=== PATIENT | male | born 1960 | race Caucasian/White ===

== ENCOUNTER → 2016-09-11 | Outpatient (CLI) | payer OTHER ==
[~2016-09-11] MED LIST: AMLODIPINE10 MG PO; ATENOLOL25 MG PO; BENAZEPRIL20 MG PO; FLONASE 0.05% 121 EA NAS; FLUTICASON0.05 MG/A2 NAS; PREDNICOT20 MG PO; PRILOSEC40 MG PO; ZITHROMAX Z PA250 MG PO
== END | disposition home or self-care (01) ==
LOC: RESCLI 02:57
DX: I10 Essential (primary) hypertension (principal); N52.9 Male erectile dysfunction, unspecified; J01.90 Acute sinusitis, unspecified; J44.9 Chronic obstructive pulmonary disease, unspecified; M79.602 Pain in left arm; E78.5 Hyperlipidemia, unspecified; K21.9 Gastro-esophageal reflux disease without esophagitis; R09.81 Nasal congestion; R19.7 Diarrhea, unspecified

== ENCOUNTER → 2016-12-10 | Outpatient (CLI) | payer OTHER | END | disposition home or self-care (01) | LOC: RESCLI 03:09 | DX: J44.9 Chronic obstructive pulmonary disease, unspecified (principal); I10 Essential (primary) hypertension; R09.81 Nasal congestion; N52.9 Male erectile dysfunction, unspecified; K21.9 Gastro-esophageal reflux disease without esophagitis; F17.200 Nicotine dependence, unspecified, uncomplicated; Z88.1 Allergy status to other antibiotic agents ==

== ENCOUNTER → 2017-01-29 | Outpatient (CLI) | payer OTHER | END | disposition home or self-care (01) | LOC: RESCLI 01:17 | DX: J44.1 Chronic obstructive pulmonary disease with (acute) exacerbation (principal); I10 Essential (primary) hypertension; J01.91 Acute recurrent sinusitis, unspecified; R19.7 Diarrhea, unspecified; R09.81 Nasal congestion; M79.602 Pain in left arm; N52.9 Male erectile dysfunction, unspecified; K21.9 Gastro-esophageal reflux disease without esophagitis ==

== ENCOUNTER → 2017-06-18 | Outpatient (CLI) | payer OTHER | END | disposition home or self-care (01) | LOC: RESCLI 04:57 | DX: J44.9 Chronic obstructive pulmonary disease, unspecified (principal); J30.2 Other seasonal allergic rhinitis; R09.81 Nasal congestion; I10 Essential (primary) hypertension; K21.9 Gastro-esophageal reflux disease without esophagitis; R19.7 Diarrhea, unspecified; L98.9 Disorder of the skin and subcutaneous tissue, unspecified; N52.9 Male erectile dysfunction, unspecified; F17.200 Nicotine dependence, unspecified, uncomplicated ==

== ENCOUNTER → 2017-07-23 | Outpatient (CLI) | payer OTHER | END | disposition home or self-care (01) | LOC: RESCLI 03:10 | DX: J30.2 Other seasonal allergic rhinitis (principal); R09.81 Nasal congestion; I10 Essential (primary) hypertension; J44.9 Chronic obstructive pulmonary disease, unspecified; K21.9 Gastro-esophageal reflux disease without esophagitis; N52.9 Male erectile dysfunction, unspecified; L98.9 Disorder of the skin and subcutaneous tissue, unspecified; M19.90 Unspecified osteoarthritis, unspecified site; Z72.0 Tobacco use; Z71.6 Tobacco abuse counseling; Z88.6 Allergy status to analgesic agent ==

== ENCOUNTER → 2017-11-05 | Outpatient (CLI) | payer OTHER | END | disposition home or self-care (01) | LOC: RESCLI 02:22 | DX: J44.9 Chronic obstructive pulmonary disease, unspecified (principal); F32.0 Major depressive disorder, single episode, mild; N52.9 Male erectile dysfunction, unspecified; J30.2 Other seasonal allergic rhinitis; R19.7 Diarrhea, unspecified; M19.90 Unspecified osteoarthritis, unspecified site; K21.9 Gastro-esophageal reflux disease without esophagitis; I10 Essential (primary) hypertension; F17.200 Nicotine dependence, unspecified, uncomplicated; Z71.6 Tobacco abuse counseling ==

== ENCOUNTER → 2017-11-20 | Outpatient (CLI) | payer OTHER | END | disposition home or self-care (01) | LOC: RESCLI 00:46 | DX: F32.0 Major depressive disorder, single episode, mild (principal); N52.9 Male erectile dysfunction, unspecified; J30.2 Other seasonal allergic rhinitis; R19.7 Diarrhea, unspecified; M19.90 Unspecified osteoarthritis, unspecified site; J44.9 Chronic obstructive pulmonary disease, unspecified; K21.9 Gastro-esophageal reflux disease without esophagitis; I10 Essential (primary) hypertension; F17.210 Nicotine dependence, cigarettes, uncomplicated; Z71.6 Tobacco abuse counseling ==

== ENCOUNTER → 2018-05-27 | Outpatient (CLI) | payer SELFPAY | END | disposition home or self-care (01) | LOC: RESCLI 03:46 | DX: Z00.01 Encounter for general adult medical examination with abnormal findings (principal); I10 Essential (primary) hypertension; M19.90 Unspecified osteoarthritis, unspecified site; J06.9 Acute upper respiratory infection, unspecified; J44.9 Chronic obstructive pulmonary disease, unspecified; K59.00 Constipation, unspecified; N52.9 Male erectile dysfunction, unspecified; K21.9 Gastro-esophageal reflux disease without esophagitis; F17.200 Nicotine dependence, unspecified, uncomplicated; F19.90 Other psychoactive substance use, unspecified, uncomplicated; Z71.6 Tobacco abuse counseling; Z82.0 Family history of epilepsy and other diseases of the nervous system; Z78.9 Other specified health status; Z79.899 Other long term (current) drug therapy ==

== ENCOUNTER → 2018-07-01 | Outpatient (CLI) | payer SELFPAY ==
[2018-07-01 09:44] LABS: BASO % 0.4 % (0.0-1.0); EOS # 0.2 10*3/uL (0.0-0.4); EOS % 1.6 % (1.0-4.0); HEMATOCRIT 41.5 % (42.0-52.0); LYMPH % 29.1 % (27.0-41.0); MEAN CELL VOLUME 96.5 fl (80.0-94.0); MEAN CORPUSCULAR HGB 32.6 pg (27.0-31.0); MEAN CORPUSCULAR HGB CONC 33.7 g/dl (33.0-37.0); MEAN PLATELET VOLUME 9.7 fl (9.6-12.3); MONO # 0.8 10*3/uL (0.1-1.0); NEUT # 6.3 10*3/uL (2.3-7.9); NEUT % 60.6 % (47.0-73.0); PLATELET COUNT AUTOMATED 215 10*3/uL (130-400); RED CELL DISTRI WIDTH 12.2 % (0-14.5); WHITE BLOOD COUNT 10.3 10*3/uL (4.8-10.8)
[2018-07-01 10:04] LABS: ALBUMIN 3.3 gm/dl (3.1-4.5); ALKALINE PHOSPHATASE 79 U/L (45-117); BUN 18 mg/dl (7-24); CHLORIDE 108 mmol/L (98-107); CHOLESTEROL 181 mg/dL (<200); CREATININE 0.99 mg/dL (0.70-1.30); HDL CHOLESTEROL 41 mg/dl (40-60); LDL CHOLESTEROL 106 mg/dL (9-159); POTASSIUM 3.4 mmol/L (3.5-5.1); SGOT/AST 12 IU/L (3-35); SGPT/ALT 18 U/L (12-78); SODIUM 143 mmol/L (136-145); TOTAL PROTEIN 7.3 gm/dL (6.4-8.2); TRIGLYCERIDES 171 mg/dl (<150); VLDL CHOLESTEROL 34 mg/dL (6-40)
[2018-07-01 10:59] LABS: VITAMIN D, 25-HYDROXY 40.7 ng/mL (30-100)
== END | disposition home or self-care (01) ==
LOC: RESCLI 03:21
PROVIDERS: Internal Medicine
DX: Z12.5 Encounter for screening for malignant neoplasm of prostate (principal); I10 Essential (primary) hypertension; J44.9 Chronic obstructive pulmonary disease, unspecified; J01.11 Acute recurrent frontal sinusitis; N52.9 Male erectile dysfunction, unspecified; K21.9 Gastro-esophageal reflux disease without esophagitis; M19.90 Unspecified osteoarthritis, unspecified site; J30.2 Other seasonal allergic rhinitis; K52.9 Noninfective gastroenteritis and colitis, unspecified; E83.51 Hypocalcemia; E66.3 Overweight; F17.200 Nicotine dependence, unspecified, uncomplicated; Z88.8 Allergy status to other drugs, medicaments and biological substances; Z79.899 Other long term (current) drug therapy; Z71.6 Tobacco abuse counseling

== ENCOUNTER → 2018-07-22 | Outpatient (CLI) | payer SELFPAY | END | disposition home or self-care (01) | LOC: RESCLI 02:34 | DX: I10 Essential (primary) hypertension (principal); J44.9 Chronic obstructive pulmonary disease, unspecified; E66.3 Overweight; J01.11 Acute recurrent frontal sinusitis; F17.200 Nicotine dependence, unspecified, uncomplicated; N52.9 Male erectile dysfunction, unspecified; K21.9 Gastro-esophageal reflux disease without esophagitis; M19.90 Unspecified osteoarthritis, unspecified site; J30.2 Other seasonal allergic rhinitis; K52.9 Noninfective gastroenteritis and colitis, unspecified; E83.51 Hypocalcemia; Z79.899 Other long term (current) drug therapy; Z71.6 Tobacco abuse counseling; Z88.8 Allergy status to other drugs, medicaments and biological substances ==

== ENCOUNTER → 2018-09-24 | Outpatient (CLI) | payer SELFPAY | END | disposition home or self-care (01) | LOC: RESCLI 01:36 | DX: J44.9 Chronic obstructive pulmonary disease, unspecified (principal); E83.51 Hypocalcemia; M19.90 Unspecified osteoarthritis, unspecified site; I10 Essential (primary) hypertension; N52.9 Male erectile dysfunction, unspecified; K21.9 Gastro-esophageal reflux disease without esophagitis; K52.9 Noninfective gastroenteritis and colitis, unspecified; F17.200 Nicotine dependence, unspecified, uncomplicated; Z79.899 Other long term (current) drug therapy; Z88.8 Allergy status to other drugs, medicaments and biological substances ==

== ENCOUNTER 2018-10-29 15:03 | Emergency (ER) | payer SELFPAY ==
[~2018-10-29] VITALS: Ht 162.5 cm; Wt 70.3 kg
--- NOTE | ~2018-10-29 | EKG ---
[place], [place] ELECTROCARDIOGRAM REPORT NAME: NELSY MANRIQUE UNIT #: [id number] ROOM: DOCTOR: [facility] DRAFT REPORT BIRTHDATE: [birth year] [facility] Test Date: 2018-10-29 Test Time: 15:41:02 Pat Name: NELSY MANRIQUE Department: Room: Gender: Software Support Technician: Marah Mayen : 1960 Requested By: KAMRAN QUIÑONEZ Order Number: [id number] Reading MD: Tomy Jones MD Measurements Intervals English Rate: 96 P: 30 NH: 151 QRS: -29 QRSD: 84 T: 75 QT: 347 QTc: 439 Interpretive Statements Sinus rhythm Atrial premature complex Borderline left axis deviation Baseline wander in lead(s) V3 No previous ECG available for comparison Electronically Signed On 10-30-2018 17:16:18 PST by Tomy Jones MD CM:EKGRPT:ELECTROCARDIOGRAM REPORT [id number] KAMRAN BURNS DRAFT REPORT KAMRAN QUIÑONEZ DO
[2018-10-29 15:59] LABS: BASO # 0.1 10*3/uL (0.0-0.1); BASO % 0.5 % (0.0-1.0); EOS # 0.1 10*3/uL (0.0-0.4); EOS % 0.6 % (1.0-4.0); HEMATOCRIT 42.8 % (42.0-52.0); HEMOGLOBIN 14.9 g/dl (14.0-18.0); LYMPH # 2.3 10*3/uL (1.3-4.4); LYMPH % 17.5 % (27.0-41.0); MEAN CELL VOLUME 94.3 fl (80.0-94.0); MEAN CORPUSCULAR HGB 32.8 pg (27.0-31.0); MEAN CORPUSCULAR HGB CONC 34.8 g/dl (33.0-37.0); MEAN PLATELET VOLUME 9.6 fl (9.6-12.3); MONO # 0.7 10*3/uL (0.1-1.0); MONO % 5.4 % (3.0-9.0); NEUT % 75.6 % (47.0-73.0); PLATELET COUNT AUTOMATED 235 10*3/uL (130-400); RED BLOOD COUNT 4.54 10*6/uL (4.50-5.90); RED CELL DISTRI WIDTH 12.3 % (0-14.5); WHITE BLOOD COUNT 13.3 10*3/uL (4.8-10.8)
[2018-10-29 16:07] LABS: ACT PARTIAL THROMBO TIME 23.5 SECONDS (20.8-31.5); INTERNATIONAL NORM RATIO 1.1 (2.0-3.5)
[2018-10-29 16:24] LABS: ALBUMIN 3.6 gm/dl (3.1-4.5); ALKALINE PHOSPHATASE 76 U/L (45-117); BUN 23 mg/dl (7-24); CHLORIDE 102 mmol/L (98-107); POTASSIUM 2.9 mmol/L (3.5-5.1); SGOT/AST 17 IU/L (3-35); SGPT/ALT 21 U/L (12-78); SODIUM 141 mmol/L (136-145); TOTAL PROTEIN 7.6 gm/dL (6.4-8.2)
[2018-10-29 16:28] LABS: TROPONIN I < 0.015 ng/ml (<0.045)
[2018-10-29 16:30] LABS: THYROID STIM HORMONE (HS) 0.704 uIU/ml (0.358-4.75)
[2018-10-29 17:05] VITALS: BP 135/97
[2018-10-29 17:09] LABS: BILIRUBIN NEGATIVE (NEGATIVE); BLOOD NEGATIVE (NEGATIVE); CLARITY CLEAR (CLEAR); COLOR YELLOW (YELLOW); GLUCOSE NEGATIVE (NEGATIVE); KETONE NEGATIVE (NEGATIVE); LEUKO ESTERASE NEGATIVE (NEGATIVE); NITRITE NEGATIVE (NEGATIVE); UROBILINOGEN 0.2 E.U./dl (0.2-1.0)
[2018-10-29 17:17] LABS: BACTERIA TRACE; EPITHELIAL CELLS 0-2; HYALINE CAST 0-2; WBC 0-2 wbc/hpf (0-5)
[2018-10-29 17:22] LABS: URINE AMPHETAMINES < 1000 (1000ng/ml); URINE BARBITURATES < 200 (200ng/ml); URINE BENZODIAZEPINES < 200 (200ng/ml); URINE CANNABINOIDS (THC) > 50 (50ng/ml); URINE COCAINE < 300 (300ng/ml); URINE METHADONE < 300 (300ng/ml); URINE OPIATES < 300 (300ng/ml)
[2018-10-29 17:24] LABS: URINE PHENCYCLIDINE < 25 (25ng/ml)
== END 2018-10-29 18:32 | disposition left against medical advice (07) ==
LOC: ED 15:03
PROVIDERS: Internal Medicine
DX: S00.81XA Abrasion of other part of head, initial encounter (principal); R55 Syncope and collapse; J44.9 Chronic obstructive pulmonary disease, unspecified; Z98.890 Other specified postprocedural states; Z79.899 Other long term (current) drug therapy; W22.8XXA Striking against or struck by other objects, initial encounter; Y93.89 Activity, other specified; Y92.090 Kitchen in other non-institutional residence as the place of occurrence of the external cause; Y99.9 Unspecified external cause status

== ENCOUNTER → 2018-10-31 | Outpatient (CLI) | payer SELFPAY | END | disposition home or self-care (01) | LOC: RESCLI 14:37 | DX: J44.9 Chronic obstructive pulmonary disease, unspecified (principal); E83.51 Hypocalcemia; M19.90 Unspecified osteoarthritis, unspecified site; I10 Essential (primary) hypertension; N52.9 Male erectile dysfunction, unspecified; K21.9 Gastro-esophageal reflux disease without esophagitis; K52.9 Noninfective gastroenteritis and colitis, unspecified; F17.200 Nicotine dependence, unspecified, uncomplicated; J01.80 Other acute sinusitis; J02.9 Acute pharyngitis, unspecified; Z79.899 Other long term (current) drug therapy; Z88.8 Allergy status to other drugs, medicaments and biological substances ==

== ENCOUNTER → 2018-12-03 | Outpatient (CLI) | payer SELFPAY | END | disposition home or self-care (01) | LOC: RESCLI 01:15 | DX: J44.9 Chronic obstructive pulmonary disease, unspecified (principal); I10 Essential (primary) hypertension; K21.9 Gastro-esophageal reflux disease without esophagitis; M19.90 Unspecified osteoarthritis, unspecified site; N52.9 Male erectile dysfunction, unspecified; K52.9 Noninfective gastroenteritis and colitis, unspecified; J01.80 Other acute sinusitis; F17.200 Nicotine dependence, unspecified, uncomplicated ==

== ENCOUNTER → 2019-01-23 | Outpatient (CLI) | payer SELFPAY ==
[~2019-01-23] MED LIST changes: +ALDACTONE25 MG PO; +AMLODIPINE BESY10 MG PO; +ATROVENT HFA12.9 GM INH; +DILANTIN100 MG PO; +DULE1ARO1 INH; +FAMOTIDINE40 MG PO; +HYDR25T PO; +LOTREL 10-40 M1 EACH PO; +MAGNESIUM OXID400 MG PO; +OMEPRAZOLE40 MG PO; +OYSTER SHELL 51 EACH PO; +POTASSIUM CHLO10 ME5 PO; +PROVENTIL HFA6.7 GM INH
== END | disposition home or self-care (01) ==
LOC: RESCLI 01:33
DX: K21.9 Gastro-esophageal reflux disease without esophagitis (principal); J44.9 Chronic obstructive pulmonary disease, unspecified; J02.9 Acute pharyngitis, unspecified; J18.9 Pneumonia, unspecified organism; M19.90 Unspecified osteoarthritis, unspecified site; I10 Essential (primary) hypertension; N52.9 Male erectile dysfunction, unspecified; E66.3 Overweight; F17.200 Nicotine dependence, unspecified, uncomplicated; Z71.6 Tobacco abuse counseling; Z79.899 Other long term (current) drug therapy; Z88.8 Allergy status to other drugs, medicaments and biological substances

== ENCOUNTER → 2019-02-10 | Outpatient (CLI) | payer MEDICAID | END | disposition home or self-care (01) | LOC: RESCLI 02:33 | DX: J44.9 Chronic obstructive pulmonary disease, unspecified (principal); M19.90 Unspecified osteoarthritis, unspecified site; I10 Essential (primary) hypertension; N52.9 Male erectile dysfunction, unspecified; K21.9 Gastro-esophageal reflux disease without esophagitis; K52.9 Noninfective gastroenteritis and colitis, unspecified; F17.200 Nicotine dependence, unspecified, uncomplicated; G56.03 Carpal tunnel syndrome, bilateral upper limbs; E78.5 Hyperlipidemia, unspecified; Z79.899 Other long term (current) drug therapy ==

== ENCOUNTER → 2019-03-04 | Outpatient (CLI) | payer MEDICAID | END | disposition home or self-care (01) | LOC: RESCLI 00:08 | DX: J01.11 Acute recurrent frontal sinusitis (principal); I10 Essential (primary) hypertension; N52.9 Male erectile dysfunction, unspecified; K21.9 Gastro-esophageal reflux disease without esophagitis; K52.9 Noninfective gastroenteritis and colitis, unspecified; J44.9 Chronic obstructive pulmonary disease, unspecified; M19.90 Unspecified osteoarthritis, unspecified site; J30.9 Allergic rhinitis, unspecified; F17.200 Nicotine dependence, unspecified, uncomplicated; Z71.6 Tobacco abuse counseling; Z79.899 Other long term (current) drug therapy; Z88.8 Allergy status to other drugs, medicaments and biological substances ==

== ENCOUNTER → 2019-03-24 | Outpatient (CLI) | payer SELFPAY ==
[~2019-03-24] MED LIST changes: -ALDACTONE25 MG PO; -AMLODIPINE BESY10 MG PO; -ATROVENT HFA12.9 GM INH; -DILANTIN100 MG PO; -DULE1ARO1 INH; -FAMOTIDINE40 MG PO; -HYDR25T PO; -LOTREL 10-40 M1 EACH PO; -MAGNESIUM OXID400 MG PO; -OMEPRAZOLE40 MG PO; -OYSTER SHELL 51 EACH PO; -POTASSIUM CHLO10 ME5 PO; -PROVENTIL HFA6.7 GM INH
== END | disposition home or self-care (01) ==
LOC: RESCLI 08:31
DX: K21.9 Gastro-esophageal reflux disease without esophagitis (principal); I10 Essential (primary) hypertension; N52.9 Male erectile dysfunction, unspecified; M19.90 Unspecified osteoarthritis, unspecified site; J44.9 Chronic obstructive pulmonary disease, unspecified; J30.9 Allergic rhinitis, unspecified; J44.1 Chronic obstructive pulmonary disease with (acute) exacerbation; F17.200 Nicotine dependence, unspecified, uncomplicated; E78.5 Hyperlipidemia, unspecified; Z79.899 Other long term (current) drug therapy

== ENCOUNTER → 2019-03-31 | Outpatient (CLI) | payer SELFPAY ==
--- NOTE | ~2019-03-31 | EKG ---
[place], [place] ELECTROCARDIOGRAM REPORT NAME: NELSY MANRIQUE UNIT #: [id number] ROOM: DOCTOR: EPIP[facility] DRAFT REPORT BIRTHDATE: [birth year] [facility] Test Date: 2019-03-31 Test Time: 09:49:18 Pat Name: NELSY MANRIQUE Department: [facility] Room: Gender: M Reading Specialist: Mirela Drake : 1960 Requested By: DANILO WEST Order Number: [id number] Reading MD: Dianne Fenton Measurements Intervals [place] Rate: 111 P: 57 IL: 132 QRS: -7 QRSD: 86 T: 65 QT: 314 QTc: 427 Interpretive Statements Sinus tachycardia Borderline low voltage, extremity leads Compared to ECG 10/29/2018 15:41:02 Sinus rhythm no longer present Atrial premature complex(es) no longer present Electronically Signed On 03-31-2019 7:49:37 PDT by Dianne Fenton CM:EKGRPT:ELECTROCARDIOGRAM REPORT DANILO WEST MD EPIPHJORDAN DRAFT REPORT DANILO WEST MD
[2019-03-31 10:34] LABS: CHLORIDE 100 mmol/L (98-107); POTASSIUM 3.3 mmol/L (3.5-5.1); SODIUM 141 mmol/L (136-145)
[2019-03-31 10:54] LABS: ALBUMIN 3.3 gm/dl (3.1-4.5); ALKALINE PHOSPHATASE 76 U/L (45-117); BUN 36 mg/dl (7-24); CREATININE 1.35 mg/dL (0.70-1.30); PHENYTOIN (DILANTIN) 0.8 ug/ml (10-20); SGOT/AST 20 IU/L (3-35); SGPT/ALT 26 U/L (12-78); TOTAL PROTEIN 7.4 gm/dL (6.4-8.2)
== END | disposition home or self-care (01) ==
LOC: RESCLI 01:00
PROVIDERS: Internal Medicine
DX: M25.561 Pain in right knee (principal); I10 Essential (primary) hypertension; S80.01XA Contusion of right knee, initial encounter; R56.9 Unspecified convulsions; J44.1 Chronic obstructive pulmonary disease with (acute) exacerbation; K21.9 Gastro-esophageal reflux disease without esophagitis; M19.90 Unspecified osteoarthritis, unspecified site; F17.210 Nicotine dependence, cigarettes, uncomplicated; J01.91 Acute recurrent sinusitis, unspecified; W19.XXXA Unspecified fall, initial encounter; Y93.89 Activity, other specified; Y92.89 Other specified places as the place of occurrence of the external cause; Y99.8 Other external cause status; Z79.899 Other long term (current) drug therapy

== ENCOUNTER 2019-05-07 14:03 | Inpatient (IN) | payer OTHER ==
[~2019-05-07] VITALS: Ht 162.6 cm; Wt 70.3 kg
[2019-05-07 14:05] VITALS: BP 145/107
[2019-05-07 14:35] LABS: BASO # 0.1 10*3/uL (0.0-0.1); BASO % 0.3 % (0.0-1.0); EOS % 0.1 % (1.0-4.0); HEMATOCRIT 42.5 % (42.0-52.0); HEMOGLOBIN 14.7 g/dl (14.0-18.0); LYMPH # 1.5 10*3/uL (1.3-4.4); LYMPH % 8.8 % (27.0-41.0); MEAN CELL VOLUME 96.2 fl (80.0-94.0); MEAN CORPUSCULAR HGB 33.3 pg (27.0-31.0); MEAN CORPUSCULAR HGB CONC 34.6 g/dl (33.0-37.0); MEAN PLATELET VOLUME 9.9 fl (9.6-12.3); MONO # 0.8 10*3/uL (0.1-1.0); MONO % 4.8 % (3.0-9.0); NEUT # 14.9 10*3/uL (2.3-7.9); NEUT % 85.3 % (47.0-73.0); PLATELET COUNT AUTOMATED 253 10*3/uL (130-400); RED BLOOD COUNT 4.42 10*6/uL (4.50-5.90); RED CELL DISTRI WIDTH 12.4 % (0-14.5); WHITE BLOOD COUNT 17.4 10*3/uL (4.8-10.8)
[2019-05-07 14:45] LABS: ACT PARTIAL THROMBO TIME 23.1 SECONDS (20.0-32.1); INTERNATIONAL NORM RATIO 1.2 (2.0-3.5)
[2019-05-07 15:00] LABS: ALBUMIN 3.8 gm/dl (3.1-4.5); ALKALINE PHOSPHATASE 64 U/L (45-117); BUN 18 mg/dl (7-24); CHLORIDE 98 mmol/L (98-107); SGOT/AST 32 IU/L (3-35); SGPT/ALT 26 U/L (12-78); SODIUM 138 mmol/L (136-145); TOTAL PROTEIN 7.5 gm/dL (6.4-8.2)
[2019-05-07 15:02] LABS: POTASSIUM 2.1 mmol/L (3.5-5.1)
--- NOTE | 2019-05-07 15:02 | NUR ---
Notifed by lab, Pt has Potassium of 2.1, Mag 0.4, Ca 6.6. Linnette WERNER and Melvin MAHMOOD notifed.
[2019-05-07 15:04] LABS: TROPONIN I < 0.015 ng/ml (<0.045)
[2019-05-07 15:10] VITALS: BP 142/94
[2019-05-07 16:25] VITALS: BP 124/72
[2019-05-07 16:40] VITALS: BP 127/90
--- NOTE | 2019-05-07 16:55 | NUR ---
A 58, admitted to ICCU, under the services of HAKAN Powers DO with a diagnosis of ELECTROLYTE DISTURBANCE. Chief complaint is DIZZINESS AT HOME. Patient arrived via stretcher from ER. Monitor applied. Initial assessment completed. Vital signs taken and recorded. HKAAN POWERS DO notified of admission to the unit. Orders received. See assessment for past medical history, medications and allergies. Patient and/or family oriented to unit. [facility] ICCU visitation policy reviewed. Clothing/patient valuable form completed. VICTOR M KRAUS
[2019-05-07] MEDS ORDERED: LOTREL 10-40 M1 EACH PO (17:48)
[2019-05-07] MEDS ORDERED: HYDR25T PO (17:49)
[2019-05-07] MEDS ORDERED: DILANTIN100 MG PO (17:49)
--- NOTE | 2019-05-07 18:38 | NUR ---
DR MCGEE AND DR RICKS IN TO SEE PT. NEW ORDERS RECEIVED.
[2019-05-07 19:01] LABS: BILIRUBIN NEGATIVE (NEGATIVE); BLOOD 1+ (NEGATIVE); CLARITY CLEAR (CLEAR); COLOR YELLOW (YELLOW); GLUCOSE NEGATIVE (NEGATIVE); KETONE TRACE (NEGATIVE); LEUKO ESTERASE NEGATIVE (NEGATIVE); NITRITE NEGATIVE (NEGATIVE); UROBILINOGEN 0.2 E.U./dl (0.2-1.0)
[2019-05-07] MEDS ORDERED: DULE1ARO1 INH (19:01)
[2019-05-07] MEDS ORDERED: PROVENTIL HFA6.7 GM INH (19:01)
[2019-05-07] MEDS ORDERED: ATROVENT HFA12.9 GM INH (19:02)
[2019-05-07 19:10] LABS: BACTERIA TRACE; MUCOUS 1+; URINE CHLORIDE, RANDOM 273 mmol/L; WBC 0-2 wbc/hpf (0-5)
[2019-05-07 19:19] LABS: URINE AMPHETAMINES < 1000 (1000ng/ml); URINE BARBITURATES < 200 (200ng/ml); URINE BENZODIAZEPINES < 200 (200ng/ml); URINE CANNABINOIDS (THC) > 50 (50ng/ml); URINE COCAINE < 300 (300ng/ml); URINE METHADONE < 300 (300ng/ml); URINE OPIATES < 300 (300ng/ml)
[2019-05-07 19:23] LABS: URINE PHENCYCLIDINE < 25 (25ng/ml)
[2019-05-07 20:00] VITALS: BP 144/90
--- NOTE | 2019-05-07 20:07 | NUR ---
RESTING IN BED. WATCHING TV. PT HAD "FELT SHAKY" EARLIER AND LIBRIUM TAPER WAS STARTED. HE APPEARS CALM AT THIS TIME. SERIAL EKG DONE AND NOTED. KRUN CONTINUES TO INFUSE AT 30CC/HR PT CAN ONLY TOLERATE THIS RATE. IV SITE APPEARS ASYMPTOMATIC.
--- NOTE | 2019-05-07 20:26 | NUR ---
DR MCGEE CHECKS ON PT CONDITION AND TOTALS OF ALL ELECTROLYTE SUPPLEMENTATION. ORDERS RECEIVED FOR BMP, IONIZED CALCIUM, AND MG AT 2200 AND TO CALL HER WITH RESULTS.
[2019-05-07 21:00] VITALS: BP 123/87
[2019-05-07 22:35] LABS: BUN 18 mg/dl (7-24); CHLORIDE 99 mmol/L (98-107); POTASSIUM 2.8 mmol/L (3.5-5.1); SODIUM 140 mmol/L (136-145)
--- NOTE | 2019-05-07 22:41 | NUR ---
DR MCGEE NOTIFIED OF LABWORK RESULTS. ORDERS RECEIVED.
[2019-05-08] VITALS: BP 121/72
[2019-05-08 04:00] VITALS: BP 131/95
[2019-05-08 06:28] LABS: BASO % 0.2 % (0.0-1.0); EOS # 0.1 10*3/uL (0.0-0.4); EOS % 0.6 % (1.0-4.0); HEMATOCRIT 40.4 % (42.0-52.0); HEMOGLOBIN 13.7 g/dl (14.0-18.0); LYMPH # 3.1 10*3/uL (1.3-4.4); LYMPH % 24.5 % (27.0-41.0); MEAN CELL VOLUME 97.3 fl (80.0-94.0); MEAN CORPUSCULAR HGB CONC 33.9 g/dl (33.0-37.0); MEAN PLATELET VOLUME 9.8 fl (9.6-12.3); MONO # 0.8 10*3/uL (0.1-1.0); MONO % 6.6 % (3.0-9.0); NEUT # 8.6 10*3/uL (2.3-7.9); NEUT % 67.6 % (47.0-73.0); PLATELET COUNT AUTOMATED 222 10*3/uL (130-400); RED BLOOD COUNT 4.15 10*6/uL (4.50-5.90); RED CELL DISTRI WIDTH 12.4 % (0-14.5); WHITE BLOOD COUNT 12.7 10*3/uL (4.8-10.8)
[2019-05-08 06:39] LABS: ALBUMIN 3.5 gm/dl (3.1-4.5); ALKALINE PHOSPHATASE 76 U/L (45-117); BUN 19 mg/dl (7-24); CHLORIDE 106 mmol/L (98-107); CREATININE 1.06 mg/dL (0.70-1.30); PHOSPHOROUS 2.2 mg/dL (2.5-4.9); POTASSIUM 3.3 mmol/L (3.5-5.1); SGOT/AST 58 IU/L (3-35); SGPT/ALT 45 U/L (12-78); SODIUM 143 mmol/L (136-145); TOTAL PROTEIN 7.2 gm/dL (6.4-8.2)
[2019-05-08 08:00] VITALS: BP 145/92
[2019-05-08] MEDS ORDERED: OMEPRAZOLE40 MG PO (08:12)
[2019-05-08] MEDS ORDERED: HYDR25T PO (08:13)
--- NOTE | 2019-05-08 08:23 | NUR ---
Awake and alert. Talkative and tremulous. Stated that he needed to take his blood pressure medicine, Advised that I would give him his ordered meds, Pt. then reached into bag at the bedside extracting his own meds, INformed that he would not be permitted to take his own meds, that we needed monitor what he was taking. Informed that I would have to take meds and send them to pharmacy , he grabbed the bag and said that no one was taking his meds. Advised that he could not keep them here, stated that he would have his lazaro take them home, And that he was going to tell Heydi about this . Requested INH . Informed that it was not ordered and that I would call physician for resp treatments, Stated that the night nurse said he could have and inhaler to have at his bedside to use whenever he needed it. I informed him that I would talk to his doctor, but that he would not be able to keep INH at bedside , as we had to monitor usage. Friend arrived bringing coffee and did take medicines home.
--- NOTE | 2019-05-08 10:21 | NUR ---
dR. Rios AND dR. Newby IN TO [facility]. Transfer to med surg pending.
[2019-05-08 11:55] VITALS: BP 132/90
--- NOTE | 2019-05-08 13:51 | NUR ---
Ultrasonic Hand Solderer in to talk to patient. Patient states lives at HOME with ALONE. There are FEW steps in the home. Physician: COLTEN Pharmacy: [facility] Home health services: NONE Patient's level of ADLs: INDEPENDENT Patient has working utilities: YES, BUT ELECTRIC IS DUE TO BE SHUT OFF ON 05/12. DME: NEBULIZER Follow-up physician's appointment after d/c: WILL BE MADE BY HOSPITALIST NURSE DIRECTOR ON DISCHARGE Does patient want to access PORTAL?: NO Discharge plan PT LIVES AT HOME ALONE AND IS INDEPENDENT IN CARE. PT STATES HE PLANS TO RETURN HOME ON DISCHARGE. PT DOES SAY HE HAS BEEN LAID OFF AND HAS NOT GOT A CHECK YET AND HIS ELECTRIC IS DUE TO BE TURNED OFF ON 05/12 BUT HE PENA. HAS ALREADY TALKED WITH [employer] AND THEY ARE GOING TO PAY BILL. NO OTHER NEEDS PER PT. WILL CONTINUE TO FOLLOW. WILL HAVE RIDE HOME PER PT.. ROSA WILKINSON
--- NOTE | 2019-05-08 14:16 | NUR ---
Transferred to [facility], ambulatory to room. Report called to Dianna MAHMOOD prior to transfer.
--- NOTE | 2019-05-08 14:56 | NUR ---
PT LEFT THE FLOOR. AND SECURITY WAS NOTIFIED. PT RETURNED TO FLOOR AND REFUSED TO PUT ON GOWN. TALK TO PT. PT CAME OUT TO THE TABLEAU ANALYST AND SAID HE WAS LEAVING. PT STATED THAT HE WILL NOT BE ACCUSED OF LEAVING THE FLOOR TO GO SMOKE. PT SIGNED OUT AMA
[2019-05-08] MEDS ORDERED: AMLODIPINE BESY10 MG PO (14:59)
[2019-05-08] MEDS ORDERED: POTASSIUM CHLO10 ME5 PO ×2 (14:59→15:07)
[2019-05-08] MEDS ORDERED: ALDACTONE25 MG PO (14:59)
[2019-05-08] MEDS ORDERED: OYSTER SHELL 51 EACH PO (14:59)
[2019-05-08] MEDS ORDERED: MAGNESIUM OXID400 MG PO (14:59)
[2019-05-08] MEDS ORDERED: FAMOTIDINE40 MG PO (14:59)
[2019-05-09 09:05] LABS: CREATININE,URINE 218.5 mg/dL (Not Estab.); MICRO ALBUMIN/CRE RATIO 19.1 (0.0-30.0)
[2019-07-21] MEDS ORDERED: MAG6464 MG PO (11:33)
[2019-07-21] MEDS ORDERED: PHENYTOIN100 MG PO (11:42)
== END 2019-05-08 14:56 | disposition left against medical advice (07) | DRG 641 ==
LOC: ED 14:03 → EDHOLD 15:28 → ICCU 15:28 → 5E 05-08 14:01
PROVIDERS: Emergency Medicine; Internal Medicine Nephrology; Student in an Organized Health Care Education/Training Program; ADMIT Internal Medicine
DX: E87.6 Hypokalemia (principal); R65.10 Systemic inflammatory response syndrome (SIRS) of non-infectious origin without acute organ dysfunction; E44.1 Mild protein-calorie malnutrition; E87.3 Alkalosis; E83.42 Hypomagnesemia; E83.51 Hypocalcemia; E87.8 Other disorders of electrolyte and fluid balance, not elsewhere classified; G40.909 Epilepsy, unspecified, not intractable, without status epilepticus; I10 Essential (primary) hypertension; D72.829 Elevated white blood cell count, unspecified; F17.210 Nicotine dependence, cigarettes, uncomplicated; K21.9 Gastro-esophageal reflux disease without esophagitis; M19.90 Unspecified osteoarthritis, unspecified site; E78.5 Hyperlipidemia, unspecified; D75.89 Other specified diseases of blood and blood-forming organs; R73.9 Hyperglycemia, unspecified; J41.0 Simple chronic bronchitis; E83.39 Other disorders of phosphorus metabolism; Z53.21 Procedure and treatment not carried out due to patient leaving prior to being seen by health care provider; K52.9 Noninfective gastroenteritis and colitis, unspecified; F10.20 Alcohol dependence, uncomplicated; Z82.49 Family history of ischemic heart disease and other diseases of the circulatory system; Z79.899 Other long term (current) drug therapy; Z87.442 Personal history of urinary calculi; Z82.0 Family history of epilepsy and other diseases of the nervous system; Z71.6 Tobacco abuse counseling; Z68.27 Body mass index [BMI] 27.0-27.9, adult

== ENCOUNTER 2019-05-16 14:30 | Emergency (ER) | payer OTHER ==
[~2019-05-16] VITALS: Ht 162.5 cm; Wt 72.6 kg
[~2019-05-16 14:30] MED LIST changes: +ALDACTONE25 MG PO; +AMLODIPINE BESY10 MG PO; +ATROVENT HFA12.9 GM INH; +DILANTIN100 MG PO; +DULE1ARO1 INH; +FAMOTIDINE40 MG PO; +HYDR25T PO; +LOTREL 10-40 M1 EACH PO; +MAGNESIUM OXID400 MG PO; +OMEPRAZOLE40 MG PO; +OYSTER SHELL 51 EACH PO; +POTASSIUM CHLO10 ME5 PO; +PROVENTIL HFA6.7 GM INH
[2019-05-16 14:31] VITALS: BP 154/104
[2019-05-16] MEDS ORDERED: DILANTIN100 MG PO (14:43)
== END 2019-05-16 14:59 | disposition home or self-care (01) ==
LOC: ED 14:30
DX: R56.9 Unspecified convulsions (principal); F17.200 Nicotine dependence, unspecified, uncomplicated; Z76.0 Encounter for issue of repeat prescription; Z79.899 Other long term (current) drug therapy

== ENCOUNTER → 2019-05-20 | Outpatient (CLI) | payer OTHER ==
[~2019-05-20] MED LIST changes: +AMILORIDE5 MG PO; +AMITRIPTYLINE H10 M1 PO; +ATORVASTATIN CA40 M1 PO; +IBU800 M1 PO; +K-TAB20 MEQ PO; +KEPPRA500 MG PO; +LOPRESSOR25 MG PO; +MAG6464 MG PO; +PEPCID20 MG PO; +PHARMASSURE FO0.4 MG PO; +PHENYTOIN100 MG PO; +TYLENOL325 M2 PO; +VITAMIN B12-FO1 EACH PO; +Vitamin D PO
== END | disposition home or self-care (01) ==
LOC: RESCLI 03:36
DX: S80.01XA Contusion of right knee, initial encounter (principal); J44.1 Chronic obstructive pulmonary disease with (acute) exacerbation; R56.9 Unspecified convulsions; I10 Essential (primary) hypertension; K21.9 Gastro-esophageal reflux disease without esophagitis; K58.0 Irritable bowel syndrome with diarrhea; F17.200 Nicotine dependence, unspecified, uncomplicated; Z79.899 Other long term (current) drug therapy; Z88.8 Allergy status to other drugs, medicaments and biological substances; X58.XXXA Exposure to other specified factors, initial encounter; Y93.89 Activity, other specified; Y92.89 Other specified places as the place of occurrence of the external cause; Y99.8 Other external cause status

== ENCOUNTER → 2019-05-26 | Outpatient (CLI) | payer OTHER ==
[~2019-05-26] MED LIST changes: -AMILORIDE5 MG PO; -AMITRIPTYLINE H10 M1 PO; -ATORVASTATIN CA40 M1 PO; -IBU800 M1 PO; -K-TAB20 MEQ PO; -KEPPRA500 MG PO; -LOPRESSOR25 MG PO; -MAG6464 MG PO; -PEPCID20 MG PO; -PHARMASSURE FO0.4 MG PO; -PHENYTOIN100 MG PO; -TYLENOL325 M2 PO; -VITAMIN B12-FO1 EACH PO; -Vitamin D PO
[2019-05-26 12:14] LABS: BASO % 0.2 % (0.0-1.0); EOS % 0.1 % (1.0-4.0); HEMATOCRIT 42.4 % (42.0-52.0); HEMOGLOBIN 14.4 g/dl (14.0-18.0); LYMPH # 1.1 10*3/uL (1.3-4.4); LYMPH % 8.6 % (27.0-41.0); MEAN CELL VOLUME 100.5 fl (80.0-94.0); MEAN CORPUSCULAR HGB 34.1 pg (27.0-31.0); MEAN PLATELET VOLUME 10.2 fl (9.6-12.3); MONO # 0.3 10*3/uL (0.1-1.0); MONO % 2.3 % (3.0-9.0); NEUT # 10.7 10*3/uL (2.3-7.9); NEUT % 88.1 % (47.0-73.0); PLATELET COUNT AUTOMATED 274 10*3/uL (130-400); RED BLOOD COUNT 4.22 10*6/uL (4.50-5.90); WHITE BLOOD COUNT 12.2 10*3/uL (4.8-10.8)
[2019-05-26 12:50] LABS: ALBUMIN 3.6 gm/dl (3.1-4.5); ALKALINE PHOSPHATASE 73 U/L (45-117); BILIRUBIN, DIRECT < 0.1 mg/dL (0.0-0.2); BUN 18 mg/dl (7-24); CHLORIDE 106 mmol/L (98-107); PHENYTOIN (DILANTIN) 3.7 ug/ml (10-20); POTASSIUM 3.6 mmol/L (3.5-5.1); SGOT/AST 14 IU/L (3-35); SGPT/ALT 24 U/L (12-78); SODIUM 141 mmol/L (136-145); TOTAL PROTEIN 7.4 gm/dL (6.4-8.2)
== END | disposition home or self-care (01) ==
LOC: LAB 11:22
PROVIDERS: Psychiatry & Neurology Neurology
DX: R56.9 Unspecified convulsions (principal)

== ENCOUNTER → 2019-05-29 | Outpatient (CLI) | payer OTHER ==
--- NOTE | 2019-05-29 13:41 | NUR ---
pt was assessed for home oxygen. pt did not qualify. pt at rest spo2 93% ra, hr 91, rr 18, b/p 125/70 pt ambulated spo2 91-945 ra pt at rest spo2 95% ra, hr 112, rr 20, bp 118/79 notified
== END | disposition home or self-care (01) ==
LOC: RESCLI 00:37
DX: S80.01XA Contusion of right knee, initial encounter (principal); J45.998 Other asthma; E78.1 Pure hyperglyceridemia; M25.561 Pain in right knee; I10 Essential (primary) hypertension; J44.9 Chronic obstructive pulmonary disease, unspecified; R19.7 Diarrhea, unspecified; N52.9 Male erectile dysfunction, unspecified; K21.9 Gastro-esophageal reflux disease without esophagitis; J44.1 Chronic obstructive pulmonary disease with (acute) exacerbation; J30.2 Other seasonal allergic rhinitis; M19.90 Unspecified osteoarthritis, unspecified site; F17.200 Nicotine dependence, unspecified, uncomplicated; K59.00 Constipation, unspecified; J45.20 Mild intermittent asthma, uncomplicated; E83.51 Hypocalcemia; G56.03 Carpal tunnel syndrome, bilateral upper limbs; J30.9 Allergic rhinitis, unspecified; F17.210 Nicotine dependence, cigarettes, uncomplicated; G40.909 Epilepsy, unspecified, not intractable, without status epilepticus; K58.0 Irritable bowel syndrome with diarrhea; X58.XXXA Exposure to other specified factors, initial encounter; Y93.89 Activity, other specified; Y92.89 Other specified places as the place of occurrence of the external cause; Y99.8 Other external cause status; Z79.899 Other long term (current) drug therapy

== ENCOUNTER → 2019-06-03 | Outpatient (CLI) | payer OTHER ==
[~2019-06-03] MED LIST changes: +AMILORIDE5 MG PO; +AMITRIPTYLINE H10 M1 PO; +ATORVASTATIN CA40 M1 PO; +IBU800 M1 PO; +K-TAB20 MEQ PO; +KEPPRA500 MG PO; +LOPRESSOR25 MG PO; +MAG6464 MG PO; +PEPCID20 MG PO; +PHARMASSURE FO0.4 MG PO; +PHENYTOIN100 MG PO; +TYLENOL325 M2 PO; +VITAMIN B12-FO1 EACH PO; +Vitamin D PO
== END | disposition home or self-care (01) ==
LOC: RESCLI 00:11
DX: J44.1 Chronic obstructive pulmonary disease with (acute) exacerbation (principal); G40.909 Epilepsy, unspecified, not intractable, without status epilepticus; I10 Essential (primary) hypertension; K21.9 Gastro-esophageal reflux disease without esophagitis; K58.0 Irritable bowel syndrome with diarrhea; N52.9 Male erectile dysfunction, unspecified; M79.671 Pain in right foot; R00.0 Tachycardia, unspecified; E66.3 Overweight; Z68.29 Body mass index [BMI] 29.0-29.9, adult; Z71.6 Tobacco abuse counseling; Z72.0 Tobacco use; Z79.899 Other long term (current) drug therapy

== ENCOUNTER 2019-06-10 07:08 | Inpatient (IN) | payer OTHER ==
[2019-06-10] VITALS (7 sets, daily range): BP systolic 108–165; BP diastolic 61–97
[~2019-06-10] VITALS: Ht 162.5 cm; Wt 73.9 kg
[~2019-06-10 07:08] MED LIST changes: -AMILORIDE5 MG PO; -AMITRIPTYLINE H10 M1 PO; -ATORVASTATIN CA40 M1 PO; -IBU800 M1 PO; -K-TAB20 MEQ PO; -KEPPRA500 MG PO; -LOPRESSOR25 MG PO; -MAG6464 MG PO; -PEPCID20 MG PO; -PHARMASSURE FO0.4 MG PO; -PHENYTOIN100 MG PO; -TYLENOL325 M2 PO; -VITAMIN B12-FO1 EACH PO; -Vitamin D PO
[2019-06-10 07:39] LABS: BASO # 0.1 10*3/uL (0.0-0.1); BASO % 0.4 % (0.0-1.0); EOS # 0.1 10*3/uL (0.0-0.4); HEMATOCRIT 42.3 % (42.0-52.0); HEMOGLOBIN 14.4 g/dl (14.0-18.0); LYMPH # 3.8 10*3/uL (1.3-4.4); LYMPH % 28.1 % (27.0-41.0); MONO # 0.7 10*3/uL (0.1-1.0); MONO % 5.3 % (3.0-9.0); NEUT # 8.7 10*3/uL (2.3-7.9); NEUT % 64.6 % (47.0-73.0); PLATELET COUNT AUTOMATED 201 10*3/uL (130-400); RED BLOOD COUNT 4.23 10*6/uL (4.50-5.90); RED CELL DISTRI WIDTH 12.3 % (0-14.5); WHITE BLOOD COUNT 13.4 10*3/uL (4.8-10.8)
[2019-06-10 07:50] LABS: ACT PARTIAL THROMBO TIME 24.8 SECONDS (20.0-32.1); INTERNATIONAL NORM RATIO 1.1 (2.0-3.5)
[2019-06-10 07:54] LABS: ALBUMIN 3.3 gm/dl (3.1-4.5); ALKALINE PHOSPHATASE 61 U/L (45-117); BUN 18 mg/dl (7-24); CHLORIDE 106 mmol/L (98-107); CREATININE 0.86 mg/dL (0.70-1.30); LIPASE 113 U/L (73-393); POTASSIUM 2.7 mmol/L (3.5-5.1); SGOT/AST 31 IU/L (3-35); SGPT/ALT 30 U/L (12-78); SODIUM 143 mmol/L (136-145); TOTAL PROTEIN 7.1 gm/dL (6.4-8.2)
--- NOTE | 2019-06-10 08:11 | NUR ---
Dr. Barnes notified of critical lab results.
--- NOTE | 2019-06-10 09:10 | NUR ---
A 59, admitted to ICCU, under the services of KAMRAN Burrows DO with a diagnosis of SIRS,SEVERE ELECTROLYTE IMBALANCE. Chief complaint is NAUSEA AND VOMITING. Patient arrived via stretcher from ER. Monitor applied. Initial assessment completed. Vital signs taken and recorded. KAMRAN BURROWS DO notified of admission to the unit. Orders received. See assessment for past medical history, medications and allergies. Patient and/or family oriented to unit. [facility] ICCU visitation policy reviewed. Clothing/patient valuable form completed. CARMEN
[2019-06-10] MEDS ORDERED: KEPPRA500 MG PO (10:46)
[2019-06-10 14:54] LABS: BUN 13 mg/dl (7-24); CHLORIDE 110 mmol/L (98-107); CREATININE 0.78 mg/dL (0.70-1.30); SODIUM 142 mmol/L (136-145)
[2019-06-10 15:08] LABS: POTASSIUM 3.8 mmol/L (3.5-5.1)
[2019-06-10 17:13] LABS: BILIRUBIN NEGATIVE (NEGATIVE); BLOOD TRACE-INTACT (NEGATIVE); CLARITY CLEAR (CLEAR); COLOR YELLOW (YELLOW); GLUCOSE NEGATIVE (NEGATIVE); KETONE NEGATIVE (NEGATIVE); LEUKO ESTERASE NEGATIVE (NEGATIVE); NITRITE NEGATIVE (NEGATIVE); SPECIFIC GRAVITY 1.015 (1.005-1.030); UROBILINOGEN 0.2 E.U./dl (0.2-1.0)
[2019-06-10 17:20] LABS: BACTERIA TRACE; MUCOUS 1+; RBC 0-2 rbc/hpf (0-2); URINE AMPHETAMINES < 1000 (1000ng/ml); URINE BARBITURATES < 200 (200ng/ml); URINE BENZODIAZEPINES < 200 (200ng/ml); URINE CANNABINOIDS (THC) > 50 (50ng/ml); URINE COCAINE < 300 (300ng/ml); URINE METHADONE < 300 (300ng/ml); URINE OPIATES < 300 (300ng/ml)
[2019-06-10 17:31] LABS: URINE PHENCYCLIDINE < 25 (25ng/ml)
[2019-06-10 19:28] LABS: BUN 18 mg/dl (7-24); CHLORIDE 110 mmol/L (98-107); CREATININE 0.83 mg/dL (0.70-1.30); POTASSIUM 3.7 mmol/L (3.5-5.1); SODIUM 144 mmol/L (136-145)
--- NOTE | 2019-06-10 19:35 | NUR ---
CRITICAL CALCIUM CALLED TO THIS RN AT THIS TIME, WILL MAKE MD AWARE.
--- NOTE | 2019-06-10 19:37 | NUR ---
DR HUGGINS MADE AWARE OF CRITICAL CALCIUM RESULT.
--- NOTE | 2019-06-10 19:38 | NUR ---
DR VARGAS ON FLOOR, MADE AWARE OF CRITICAL CALCIUM RESULT, ALSO MADE AWARE OF PATIENTS REQUEST FOR NICOTROL INHALER. ORDERS TO FOLLOW
[2019-06-10 22:30] LABS: BUN 23 mg/dl (7-24); CHLORIDE 111 mmol/L (98-107); CREATININE 0.84 mg/dL (0.70-1.30); SODIUM 143 mmol/L (136-145)
[2019-06-11] VITALS: BP 124/77
[2019-06-11 04:00] VITALS: BP 128/80
[2019-06-11] MEDS ORDERED: OMEPRAZOLE40 MG PO (06:06)
--- NOTE | 2019-06-11 06:16 | NUR ---
DR HUGGINS MADE AWARE OF PATIENT REFUSAL OF AM MEDICATIONS, AND UPDATING OF MED REC. UPDATED WITH PATIENTS CHANGE IN MOOD WELL. STATES SHE WILL LET DAY TEAM KNOW.
[2019-06-11 06:47] LABS: BASO % 0.4 % (0.0-1.0); EOS # 0.1 10*3/uL (0.0-0.4); EOS % 0.9 % (1.0-4.0); HEMATOCRIT 36.5 % (42.0-52.0); LYMPH # 2.4 10*3/uL (1.3-4.4); LYMPH % 22.4 % (27.0-41.0); MEAN CELL VOLUME 101.7 fl (80.0-94.0); MEAN CORPUSCULAR HGB 33.4 pg (27.0-31.0); MEAN CORPUSCULAR HGB CONC 32.9 g/dl (33.0-37.0); MEAN PLATELET VOLUME 10.7 fl (9.6-12.3); MONO # 0.6 10*3/uL (0.1-1.0); MONO % 5.7 % (3.0-9.0); NEUT # 7.4 10*3/uL (2.3-7.9); NEUT % 70.1 % (47.0-73.0); PLATELET COUNT AUTOMATED 201 10*3/uL (130-400); RED BLOOD COUNT 3.59 10*6/uL (4.50-5.90); RED CELL DISTRI WIDTH 12.2 % (0-14.5); WHITE BLOOD COUNT 10.6 10*3/uL (4.8-10.8)
[2019-06-11 07:00] LABS: CHLORIDE 109 mmol/L (98-107); POTASSIUM 3.7 mmol/L (3.5-5.1); SODIUM 140 mmol/L (136-145)
[2019-06-11 07:05] LABS: ACT PARTIAL THROMBO TIME 25.9 SECONDS (20.0-32.1)
[2019-06-11 07:11] LABS: ALBUMIN 2.9 gm/dl (3.1-4.5); ALKALINE PHOSPHATASE 61 U/L (45-117); BUN 18 mg/dl (7-24); CHOLESTEROL 186 mg/dL (<200); HDL CHOLESTEROL 44 mg/dl (40-60); LDL CHOLESTEROL 112 mg/dL (9-159); PHOSPHOROUS 1.6 mg/dL (2.5-4.9); SGOT/AST 36 IU/L (3-35); SGPT/ALT 29 U/L (12-78); THYROID STIM HORMONE (HS) 0.364 uIU/ml (0.358-4.75); TOTAL PROTEIN 6.2 gm/dL (6.4-8.2); TRIGLYCERIDES 152 mg/dl (<150); VLDL CHOLESTEROL 30 mg/dL (6-40)
[2019-06-11 08:00] VITALS: BP 134/80
[2019-06-11 08:51] LABS: VITAMIN D, 25-HYDROXY 34.6 ng/mL (30-100)
--- NOTE | 2019-06-11 09:00 | NUR ---
Tying Machine Operator Lumber in to talk to patient. Patient states lives at home alone with his daughter checking in on him. There are 14-15 steps in the home. Physician: resident [facility] Pharmacy: [facility] Home health services: none Patient's level of ADLs: INDEPENDENT Patient has working utilities: yes DME: nebulizer Follow-up physician's appointment after d/c: will be made by the hospitalist nurse director upon discharge Does patient want to access PORTAL?: no Discharge plan discussed with patient. He lives at home alone with his daughter checking in on him. He is independent in his ADLs and ambulation. Discussed home health care services and he denies any home needs at this time. When medically stable he will be discharged to home. His daughter will provide transportation on discharge. RAUL BUENROSTRO
[2019-06-11] MEDS ORDERED: VITAMIN B12-FO1 EACH PO (09:16)
--- NOTE | 2019-06-11 09:39 | NUR ---
Discharge instructions reviewed with patient/family. Patient receptive and verbalizes understanding. Follow-up care arranged. Written instructions given to patient/family. VICTOR M KRAUS
--- NOTE | 2019-06-11 09:40 | NUR ---
PT DISCHARGED AT THIS TIME. AMBULATED OUT TO MEET HIS RIDE IN THE MAIN LOBBY AT HIS REQUEST.
[2019-07-21] MEDS ORDERED: MAG6464 MG PO (11:33)
[2019-07-21] MEDS ORDERED: PHENYTOIN100 MG PO (11:42)
== END 2019-06-11 09:40 | disposition home or self-care (01) | DRG 425 ==
LOC: ED 07:08 → EDHOLD 08:26 → ICCU 08:26
PROVIDERS: Emergency Medicine; Family Medicine; Hospitalist; ADMIT Internal Medicine
DX: E87.8 Other disorders of electrolyte and fluid balance, not elsewhere classified (principal); E87.6 Hypokalemia; E83.42 Hypomagnesemia; E44.0 Moderate protein-calorie malnutrition; E87.2 Acidosis; R65.10 Systemic inflammatory response syndrome (SIRS) of non-infectious origin without acute organ dysfunction; E83.51 Hypocalcemia; D72.829 Elevated white blood cell count, unspecified; D75.89 Other specified diseases of blood and blood-forming organs; R73.9 Hyperglycemia, unspecified; I10 Essential (primary) hypertension; J44.9 Chronic obstructive pulmonary disease, unspecified; M19.91 Primary osteoarthritis, unspecified site; E78.5 Hyperlipidemia, unspecified; K21.9 Gastro-esophageal reflux disease without esophagitis; F17.210 Nicotine dependence, cigarettes, uncomplicated; G40.909 Epilepsy, unspecified, not intractable, without status epilepticus; Z82.49 Family history of ischemic heart disease and other diseases of the circulatory system; Z81.8 Family history of other mental and behavioral disorders; Z68.26 Body mass index [BMI] 26.0-26.9, adult

== ENCOUNTER 2019-06-21 19:11 | Inpatient (IN) | payer OTHER ==
--- NOTE | 2019-06-20 22:30 | NUR ---
PATIENTS SPO2 87% ONCE COMING ON TO FLOOR, PATIENT PLACED ON 2L NC, APO2 INCREASE 92%. NO DISTRESS. CALL LIGHT WITHI NREACH.
[~2019-06-21] VITALS: Ht 162.6 cm; Wt 67.1 kg
--- NOTE | ~2019-06-21 | EKG ---
[place], [place] ELECTROCARDIOGRAM REPORT NAME: NELSY MANRIQUE UNIT #: [id number] ROOM: 407 DOCTOR: HELEN DRAFT REPORT BIRTHDATE: [birth year] [facility] Test Date: 2019-06-21 Test Time: 20:04:04 Pat Name: NELSY MANRIQUE Department: Room: 407 Gender: M Senior Linux Unix Engineer: Chrissy Luciano : 1960 Requested By: PRINCE ABEL Order Number: [id number] Reading MD: Ashkan Elias MD Measurements Intervals [place] Rate: 97 P: 13 HI: 157 QRS: -34 QRSD: 82 T: 67 QT: 361 QTc: 459 Interpretive Statements Sinus tachycardia Multiple ventricular premature complexes Borderline left axis deviation Electronically Signed On 06-22-2019 5:04:10 PDT by Ashkan Elias MD CM:EKGRPT:ELECTROCARDIOGRAM REPORT [id number] PRINCE COLTEN CERVANTES DRAFT REPORT PRINCE ABEL
[~2019-06-21 19:11] MED LIST changes: +KEPPRA500 MG PO; +VITAMIN B12-FO1 EACH PO
[2019-06-21 19:15] VITALS: BP 130/83
--- NOTE | 2019-06-21 19:26 | NUR ---
RESIDENT REMAINS AT THE BEDSIDE.
[2019-06-21 19:46] LABS: BASO % 0.2 % (0.0-1.0); EOS # 0.1 10*3/uL (0.0-0.4); EOS % 0.4 % (1.0-4.0); HEMATOCRIT 41.7 % (42.0-52.0); HEMOGLOBIN 14.4 g/dl (14.0-18.0); LYMPH % 15.6 % (27.0-41.0); MEAN CELL VOLUME 99.3 fl (80.0-94.0); MEAN CORPUSCULAR HGB 34.3 pg (27.0-31.0); MEAN CORPUSCULAR HGB CONC 34.5 g/dl (33.0-37.0); MEAN PLATELET VOLUME 9.7 fl (9.6-12.3); MONO # 0.7 10*3/uL (0.1-1.0); MONO % 5.3 % (3.0-9.0); NEUT # 9.9 10*3/uL (2.3-7.9); NEUT % 77.8 % (47.0-73.0); PLATELET COUNT AUTOMATED 229 10*3/uL (130-400); RED CELL DISTRI WIDTH 12.7 % (0-14.5); WHITE BLOOD COUNT 12.7 10*3/uL (4.8-10.8)
--- NOTE | 2019-06-21 19:55 | NUR ---
UPON ENTERING ROOM, PATIENT IS ASLEEP. AWAKENED EASLIT TO VERBAL STIMULI. DOSED BACK OFF BY TIME I HAD GIVEN HIM HIS IV MEDICATIONS. IS VERY ANXIOUS AND RESTLESS WHEN AWAKE.
[2019-06-21 20:04] LABS: ALBUMIN 3.4 gm/dl (3.1-4.5); ALKALINE PHOSPHATASE 61 U/L (45-117); BUN 22 mg/dl (7-24); CHLORIDE 105 mmol/L (98-107); CREATININE 1.03 mg/dL (0.70-1.30); POTASSIUM 2.9 mmol/L (3.5-5.1); SGOT/AST 24 IU/L (3-35); SGPT/ALT 29 U/L (12-78); SODIUM 142 mmol/L (136-145); TOTAL PROTEIN 7.3 gm/dL (6.4-8.2)
--- NOTE | 2019-06-21 20:22 | NUR ---
UPON ENTERING ROOM, PATIENT IS ASLEEP AND SNORING.A WAKENED TO NAME THEN BACK ASLEEP.
[2019-06-21 21:12] VITALS: BP 114/69
--- NOTE | 2019-06-21 21:16 | NUR ---
PLACED ON 2 L OF OXYGEN VIA N/AC. DENIES EVER BEING DIAGNOSED WITN SLEEP APNEA. VERY SOMNOLENT. NAUSEA HAS IMPROVED AND IS LESS DIZZY.
--- NOTE | 2019-06-21 21:27 | NUR ---
UPDATED DR CHAUDHARI THAT PATIENT WAS PLACD ON OXYGEN DUE TO SAO2 OF 87% ON ROOM AIR WHILE SOUND ASLEEP. IMPROVED TO 93% WHEN AWAKE.
--- NOTE | 2019-06-21 21:39 | NUR ---
DR CHAUDHARI IS AT THE BEDSIDE.
--- NOTE | 2019-06-21 21:47 | NUR ---
AMBULATORY TO THE BATHROOM. DIZZINESS IS RESOLVED AT THIS TIME. FEELING MUCH BETTER. CONCERNED ABOUT BEING ADMITTED DUE TO HIS [employer] NOT WANTING TO PAY FOR HIS LAST ADMISSION.
[2019-06-21 22:30] VITALS: BP 111/70
--- NOTE | 2019-06-21 22:30 | NUR ---
A 59, admitted to 4E, under the services of JUSTICE Michelle DO with a diagnosis of HYPOKALEMIA, DIZZINESS. Chief complaint is N/V DIZZINESS. Patient arrived via bed from ER. Monitor applied. Initial assessment completed. Vital signs taken and recorded. JUSTICE MICHELLE DO notified of admission to the unit. Orders received. See assessment for past medical history, medications and allergies. Patient oriented to unit. Clothing/patient valuable form completed. VANDANA OGMEZ
--- NOTE | 2019-06-21 22:33 | NUR ---
NURSE TO NURSE TO VANDANA AT THE BEDSIDE.
[2019-06-21] MEDS ORDERED: PHARMASSURE FO0.4 MG PO (23:04)
--- NOTE | 2019-06-21 23:25 | NUR ---
UPDATED MED LIST PER PATIENTS LAST DISCHARGE PAPERWORK ON 06/11/19
--- NOTE | 2019-06-21 23:26 | NUR ---
NOTIFIED DR. LEMUS THAT PATIENTS MED REC WAS UPDATED PER LAST DISCHARGE PAPERWORK
--- NOTE | 2019-06-22 00:29 | NUR ---
PATIENT IS RESTING IN BED WITH EASY AND REGULAR RESPERS ON 2L VIA NC. ASSESSMENT IS COMPLETE WITH NO C/O OR S/S OF DISTRESS NOTED AT THIS TIME. BED IS LOW, LOCKED, ALARMED, AND CALL LIGHT IS WITHIN REACH. WILL CONTINUE TO MONITOR SEE SHIFT ASSESSMENT.
--- NOTE | 2019-06-22 04:34 | NUR ---
CARLOS RETIMED D/T PATIENT STATING HE TAKES MEDICATION AT 0600 AND 1800 AT HOME.
--- NOTE | 2019-06-22 05:11 | NUR ---
SPOKE WITH DR. LEMUS REGARDING PATIENT C/O LOOSE STOOL, ONCE IN ER AND ONCE ON FLOOR. PATIENT IS REQUESTING IMMODIUM. SEE NEW ORDER.
--- NOTE | 2019-06-22 06:00 | NUR ---
PRN IMODIUM GIVEN FOR C/O LOOSE STOOL. CALL LIGHT IS WITHIN REACH.
[2019-06-22 06:26] LABS: BASO % 0.4 % (0.0-1.0); EOS # 0.1 10*3/uL (0.0-0.4); EOS % 0.9 % (1.0-4.0); HEMATOCRIT 40.5 % (42.0-52.0); HEMOGLOBIN 13.8 g/dl (14.0-18.0); LYMPH # 2.6 10*3/uL (1.3-4.4); LYMPH % 25.1 % (27.0-41.0); MEAN CORPUSCULAR HGB 34.1 pg (27.0-31.0); MEAN CORPUSCULAR HGB CONC 34.1 g/dl (33.0-37.0); MONO # 0.7 10*3/uL (0.1-1.0); MONO % 6.7 % (3.0-9.0); NEUT # 6.8 10*3/uL (2.3-7.9); NEUT % 66.4 % (47.0-73.0); PLATELET COUNT AUTOMATED 227 10*3/uL (130-400); RED BLOOD COUNT 4.05 10*6/uL (4.50-5.90); RED CELL DISTRI WIDTH 12.5 % (0-14.5); WHITE BLOOD COUNT 10.3 10*3/uL (4.8-10.8)
[2019-06-22 07:01] LABS: BUN 19 mg/dl (7-24); CHLORIDE 107 mmol/L (98-107); CHOLESTEROL 190 mg/dL (<200); CREATININE 0.73 mg/dL (0.70-1.30); FREE T4 1.03 ng/dl (0.76-1.46); HDL CHOLESTEROL 42 mg/dl (40-60); LDL CHOLESTEROL 106 mg/dL (9-159); PHOSPHOROUS 2.7 mg/dL (2.5-4.9); POTASSIUM 3.3 mmol/L (3.5-5.1); SODIUM 143 mmol/L (136-145); TRIGLYCERIDES 210 mg/dl (<150); VLDL CHOLESTEROL 42 mg/dL (6-40)
[2019-06-22 07:07] LABS: THYROID STIM HORMONE (HS) 0.792 uIU/ml (0.358-4.75)
--- NOTE | 2019-06-22 07:20 | NUR ---
DR. COFFMAN CONTACTED AT THIS TIME I REGARDS TO MG LEVEL OF <0.3. AWAITING NEW ORDERS.
--- NOTE | 2019-06-22 07:52 | NUR ---
INITIAL ASEEMENT COMPLTED. RESPS EASY ON RA.MG RUN INFUSING PER PHYSICIAN ORDER. PT REFUSES FLU VACCINE AT THIS TIME.VOICES NO C/O.STABLE AT THIS TIME. CALL LIGHT IN REACH.
[2019-06-22 08:00] VITALS: BP 126/78
--- NOTE | 2019-06-22 08:02 | NUR ---
SPOKE WITH DR. COFFMAN REGARDING TWO IV MG ORDERS. ONE CANCELLED, AND CLEAR LIQUID DIET OBTAINED.
[2019-06-22 08:14] LABS: VITAMIN D, 25-HYDROXY 24.8 ng/mL (30-100)
--- NOTE | 2019-06-22 09:00 | NUR ---
Application Systems Engineer in to talk to patient. Patient states lives at home with alone. There are few steps in the home. Physician: resident [facility] Pharmacy: [facility] Home health services: none Patient's level of ADLs: INDEPENDENT Patient has working utilities: all working DME: nebulizer, no home oxygen Follow-up physician's appointment after d/c: will be made by hospitalist nurse director upon discharge Does patient want to access PORTAL?: no Discharge plan discussed with patient, he states he lives at home alone, is independent in adls and ambulation, drives, discussed with patient readmission to the hospital and discussed VNA, he was receptive to this and chose [facility], will send a referral to [facility] for when patient is medically stable, case management will follow. POLINA SIMS
[2019-06-22] MEDS ORDERED: LOTREL 10-40 M1 EACH PO (10:56)
[2019-06-22] MEDS ORDERED: AMITRIPTYLINE H10 M1 PO (10:58)
[2019-06-22] MEDS ORDERED: IBU800 M1 PO (11:01)
[2019-06-22] MEDS ORDERED: OMEPRAZOLE40 MG PO (11:02)
--- NOTE | 2019-06-22 11:02 | NUR ---
VERIFIED HOME MEDS THROUGH [facility].NOTIFIED ДМИТРИЙ GODWIN OF CHANGES. PT STATES "I ONLY TAKE VITAMENS AND SIEZURE MED". PT REFILLS ARE CURRENTLY DUE AND NOT PICKED UP.PT POOR HISTORIAN AND IS NOT COMPLIANT WITH PRESCRIBED MEDS AT TIMES..
[2019-06-22] MEDS ORDERED: PHARMASSURE FO0.4 MG PO (11:11)
[2019-06-22 12:00] VITALS: BP 150/80
--- NOTE | 2019-06-22 12:26 | NUR ---
NOTIFIED DR ROBY FRASER'S OFFICE OF NEW CONSULT FOR TACHYCARDIA.
--- NOTE | 2019-06-22 12:30 | NUR ---
PT REQUESTING NICOTROL INHALER,PT IS A 2 PPD SMOKER SINCE THE AGE OF 13 PER PT.ORDER RECIEVED.
--- NOTE | 2019-06-22 15:17 | NUR ---
DR MCGEE NOTIFIED AND ALREADY AWARE OF CONSULT.
[2019-06-22 16:00] VITALS: BP 136/85
[2019-06-22 18:25] LABS: ALBUMIN 3.4 gm/dl (3.1-4.5); ALKALINE PHOSPHATASE 65 U/L (45-117); BUN 25 mg/dl (7-24); CHLORIDE 109 mmol/L (98-107); CREATININE 1.07 mg/dL (0.70-1.30); POTASSIUM 3.6 mmol/L (3.5-5.1); SGOT/AST 33 IU/L (3-35); SGPT/ALT 34 U/L (12-78); SODIUM 141 mmol/L (136-145); TOTAL PROTEIN 7.2 gm/dL (6.4-8.2)
--- NOTE | 2019-06-22 18:49 | NUR ---
NOTIFIED DR JHA OF LABS.ORDERS RECIEVED.
--- NOTE | 2019-06-22 19:37 | NUR ---
24 HOUR CHART CHECK COMPLETED
[2019-06-22 20:00] VITALS: BP 141/81
--- NOTE | 2019-06-22 20:12 | NUR ---
PATIENT ASSESSMENT COMPLETED AT THIS TIME, PATIENT DENIES ANY CHEST PAIN OR SHORTNESS OF BREATH AT THIS TIME. IV MAGNESIUM STARTED PER DOCTORS ORDERS, PATIENT TOLERATING WELL, EDUCATED PATIENT OF SIGNS AND SYMPTOMS TO WATCH FOR DURING INFUSION. CALL LIGHT WITHIN REACH, WILL CONTINUE TO MONITOR.
[2019-06-23] VITALS: BP 137/89
--- NOTE | 2019-06-23 04:20 | NUR ---
PATIENT RESTING IN BED IN A POSITION OF COMFORT, RESPIRATIONS EASY AND NON-LABORED. CALL LIGHT WITHIN REACH, WILL CONTINUE TO MONITOR.
[2019-06-23 06:03] LABS: PHOSPHOROUS 1.8 mg/dL (2.5-4.9)
[2019-06-23 06:18] LABS: BASO # 0.1 10*3/uL (0.0-0.1); BASO % 0.6 % (0.0-1.0); EOS # 0.1 10*3/uL (0.0-0.4); EOS % 1.3 % (1.0-4.0); HEMATOCRIT 38.8 % (42.0-52.0); HEMOGLOBIN 12.8 g/dl (14.0-18.0); LYMPH # 2.9 10*3/uL (1.3-4.4); LYMPH % 27.8 % (27.0-41.0); MEAN CELL VOLUME 100.8 fl (80.0-94.0); MEAN CORPUSCULAR HGB 33.2 pg (27.0-31.0); MONO # 0.8 10*3/uL (0.1-1.0); MONO % 7.9 % (3.0-9.0); NEUT # 6.5 10*3/uL (2.3-7.9); NEUT % 61.8 % (47.0-73.0); PLATELET COUNT AUTOMATED 230 10*3/uL (130-400); RED BLOOD COUNT 3.85 10*6/uL (4.50-5.90); RED CELL DISTRI WIDTH 12.5 % (0-14.5); WHITE BLOOD COUNT 10.6 10*3/uL (4.8-10.8)
[2019-06-23] MEDS ORDERED: AMLODIPINE BESY10 MG PO (08:49)
[2019-06-23] MEDS ORDERED: ATORVASTATIN CA40 M1 PO (08:49)
[2019-06-23] MEDS ORDERED: TYLENOL325 M2 PO (08:49)
[2019-06-23] MEDS ORDERED: MAG6464 MG PO (08:49)
[2019-06-23] MEDS ORDERED: LOPRESSOR25 MG PO (08:49)
[2019-06-23] MEDS ORDERED: K-TAB20 MEQ PO (08:49)
[2019-06-23] MEDS ORDERED: AMILORIDE5 MG PO (08:49)
[2019-06-23] MEDS ORDERED: Vitamin D PO (08:56)
[2019-06-23] MEDS ORDERED: PEPCID20 MG PO (08:56)
--- NOTE | 2019-06-23 09:00 | NUR ---
case management visits with patient, he states he will be returning home when medically stable and is agreeable to VNA. case management will notify [facility] when patient is medically stable for discharge
--- NOTE | 2019-06-23 11:17 | NUR ---
case management received a message that patient is being discharged to home today, notified Susan at [facility] and home health orders faxed
--- NOTE | 2019-06-23 11:28 | NUR ---
Another Multi-Disciplinary Team meeting was held on 06/23/19, for the purpose of discharge planning. The patient was referred to the following services for follow-up: patient will be discharged to home today with [facility] following POLINA SIMS
--- NOTE | 2019-06-23 14:03 | NUR ---
[facility] Discharge instructions reviewed with patient/family. Patient receptive and verbalizes understanding. Follow-up care arranged. Written instructions given to patient/family. COURTNEY NUÑEZ
--- NOTE | 2019-06-23 14:08 | NUR ---
WENT OVER DISCHARGE INSTRUCTIONS WITH PATIENT. I HIGHLIGHTED STOPPED MEDICATIONS, GAVE PATIENT HIS NEW SCRIPTS. PT IS AWARE THAT HE IS TO FOLLOW UP WITH DR. MCGEE ON Saturday AND THAT HE IS TO START 24 HOUR URINE COLLECTION ON Saturday. LEFT MESSAGE WITH PT'S BROTHER TO CALL ME SO I COULD GO OVER DISCHARGE INSCRUTIONS WITH HIM WELL. PT'S DAUGHTER WAS UNABLE TO ENGINEERING PRODUCTION WORKER PT, HIS FRIEND PICKED HIM UP OUTSIDE OF HOSPITAL.
--- NOTE | 2019-06-23 14:58 | NUR ---
SPOKE WITH PT'S BROTHER REGARDING DISCHARGE INSTRUCTIONS.
[2019-07-21] MEDS ORDERED: MAG6464 MG PO (11:33)
[2019-07-21] MEDS ORDERED: PHENYTOIN100 MG PO (11:42)
== END 2019-06-23 14:08 | disposition home or self-care (01) | DRG 425 ==
LOC: ED 19:11 → EDHOLD 21:50 → 4E 21:50
PROVIDERS: Internal Medicine; Internal Medicine Nephrology; Registered Nurse; ADMIT Internal Medicine
DX: E87.6 Hypokalemia (principal); J96.01 Acute respiratory failure with hypoxia; K21.9 Gastro-esophageal reflux disease without esophagitis; E83.51 Hypocalcemia; R65.10 Systemic inflammatory response syndrome (SIRS) of non-infectious origin without acute organ dysfunction; F17.210 Nicotine dependence, cigarettes, uncomplicated; G40.909 Epilepsy, unspecified, not intractable, without status epilepticus; E78.2 Mixed hyperlipidemia; I47.1 Supraventricular tachycardia; I11.9 Hypertensive heart disease without heart failure; R11.2 Nausea with vomiting, unspecified; D53.9 Nutritional anemia, unspecified; I95.1 Orthostatic hypotension; M19.90 Unspecified osteoarthritis, unspecified site; F10.10 Alcohol abuse, uncomplicated; E83.42 Hypomagnesemia; D75.89 Other specified diseases of blood and blood-forming organs; J44.9 Chronic obstructive pulmonary disease, unspecified; Z91.14 Patient's other noncompliance with medication regimen; Z71.6 Tobacco abuse counseling; Z91.018 Allergy to other foods; Z91.09 Other allergy status, other than to drugs and biological substances; Z87.442 Personal history of urinary calculi; Z82.49 Family history of ischemic heart disease and other diseases of the circulatory system; Z82.0 Family history of epilepsy and other diseases of the nervous system; Z79.899 Other long term (current) drug therapy

== ENCOUNTER → 2019-07-06 | Outpatient (CLI) | payer OTHER ==
[~2019-07-06] MED LIST changes: +AMILORIDE5 MG PO; +AMITRIPTYLINE H10 M1 PO; +ATORVASTATIN CA40 M1 PO; +IBU800 M1 PO; +K-TAB20 MEQ PO; +LOPRESSOR25 MG PO; +MAG6464 MG PO; +PEPCID20 MG PO; +PHARMASSURE FO0.4 MG PO; +PHENYTOIN100 MG PO; +TYLENOL325 M2 PO; +Vitamin D PO
[2019-07-06 11:32] LABS: ALBUMIN 3.5 gm/dl (3.1-4.5); ALKALINE PHOSPHATASE 70 U/L (45-117); BUN 15 mg/dl (7-24); CHLORIDE 107 mmol/L (98-107); CREATININE 0.98 mg/dL (0.70-1.30); PHOSPHOROUS 2.8 mg/dL (2.5-4.9); POTASSIUM 3.8 mmol/L (3.5-5.1); SGOT/AST 33 IU/L (3-35); SGPT/ALT 49 U/L (12-78); SODIUM 141 mmol/L (136-145); TOTAL PROTEIN 7.3 gm/dL (6.4-8.2)
[2019-07-07 08:10] LABS: ALPHA-1-ANTITRYPSIN, SERUM 147 mg/dL (101-187)
[2019-07-07 11:09] LABS: URINE MAGNESIUM 24 HR <37.5 mg/24 hr (12.0-293.0)
== END | disposition home or self-care (01) ==
LOC: LAB 10:10
PROVIDERS: Internal Medicine Critical Care Medicine; Internal Medicine Nephrology
DX: J44.9 Chronic obstructive pulmonary disease, unspecified (principal); E87.6 Hypokalemia

== ENCOUNTER 2019-07-08 13:17 | Emergency (ER) | payer OTHER ==
[~2019-07-08] VITALS: Ht 162.5 cm; Wt 74.4 kg
[~2019-07-08 13:17] MED LIST changes: -PHENYTOIN100 MG PO
[2019-07-08 13:50] LABS: BASO # 0.1 10*3/uL (0.0-0.1); BASO % 0.4 % (0.0-1.0); EOS # 0.1 10*3/uL (0.0-0.4); EOS % 1.2 % (1.0-4.0); HEMATOCRIT 43.5 % (42.0-52.0); HEMOGLOBIN 14.4 g/dl (14.0-18.0); LYMPH # 3.3 10*3/uL (1.3-4.4); LYMPH % 27.5 % (27.0-41.0); MEAN CELL VOLUME 100.7 fl (80.0-94.0); MEAN CORPUSCULAR HGB 33.3 pg (27.0-31.0); MEAN CORPUSCULAR HGB CONC 33.1 g/dl (33.0-37.0); MEAN PLATELET VOLUME 10.2 fl (9.6-12.3); MONO # 0.6 10*3/uL (0.1-1.0); MONO % 5.3 % (3.0-9.0); NEUT # 7.8 10*3/uL (2.3-7.9); NEUT % 65.2 % (47.0-73.0); PLATELET COUNT AUTOMATED 246 10*3/uL (130-400); RED BLOOD COUNT 4.32 10*6/uL (4.50-5.90); RED CELL DISTRI WIDTH 12.4 % (0-14.5)
[2019-07-08 13:59] LABS: ACT PARTIAL THROMBO TIME 25.4 SECONDS (20.0-32.1)
[2019-07-08 14:04] LABS: ALBUMIN 3.5 gm/dl (3.1-4.5); ALKALINE PHOSPHATASE 86 U/L (45-117); BUN 24 mg/dl (7-24); CHLORIDE 111 mmol/L (98-107); CREATININE 1.21 mg/dL (0.70-1.30); LIPASE 271 U/L (73-393); PHOSPHOROUS 3.1 mg/dL (2.5-4.9); POTASSIUM 3.7 mmol/L (3.5-5.1); SGOT/AST 37 IU/L (3-35); SGPT/ALT 47 U/L (12-78); SODIUM 142 mmol/L (136-145); TOTAL PROTEIN 7.1 gm/dL (6.4-8.2)
[2019-07-08 14:08] LABS: TROPONIN I < 0.015 ng/ml (<0.045)
[2019-07-08 14:32] LABS: BILIRUBIN NEGATIVE (NEGATIVE); BLOOD NEGATIVE (NEGATIVE); CLARITY SL CLOUDY (CLEAR); COLOR YELLOW (YELLOW); GLUCOSE NEGATIVE (NEGATIVE); KETONE NEGATIVE (NEGATIVE); LEUKO ESTERASE NEGATIVE (NEGATIVE); NITRITE NEGATIVE (NEGATIVE); SPECIFIC GRAVITY 1.025 (1.005-1.030); UROBILINOGEN 0.2 E.U./dl (0.2-1.0)
[2019-07-08 14:41] LABS: BACTERIA TRACE; MUCOUS 3+
[2019-07-08 16:39] VITALS: BP 124/77
[2019-07-21] MEDS ORDERED: MAG6464 MG PO (11:33)
[2019-07-21] MEDS ORDERED: PHENYTOIN100 MG PO (11:42)
== END 2019-07-08 18:13 | disposition home or self-care (01) ==
LOC: ED 13:17
PROVIDERS: Nurse Practitioner Family
DX: E83.42 Hypomagnesemia (principal); I10 Essential (primary) hypertension; J44.9 Chronic obstructive pulmonary disease, unspecified; G40.909 Epilepsy, unspecified, not intractable, without status epilepticus; F17.200 Nicotine dependence, unspecified, uncomplicated; Z91.048 Other nonmedicinal substance allergy status; Z91.018 Allergy to other foods; Z79.899 Other long term (current) drug therapy; Z87.442 Personal history of urinary calculi

== ENCOUNTER → 2019-08-11 | Outpatient (CLI) | payer OTHER ==
[~2019-08-11] MED LIST changes: +PHENYTOIN100 MG PO
== END | disposition home or self-care (01) ==
LOC: LAB 09:14
DX: E61.2 Magnesium deficiency (principal)

== ENCOUNTER → 2019-08-17 | Outpatient (CLI) | payer OTHER ==
[2019-08-17 14:57] LABS: BUN 24 mg/dl (7-24); CHLORIDE 105 mmol/L (98-107); CREATININE 1.08 mg/dL (0.70-1.30); POTASSIUM 4.3 mmol/L (3.5-5.1); SODIUM 137 mmol/L (136-145)
== END | disposition home or self-care (01) ==
LOC: LAB 13:53
PROVIDERS: Internal Medicine
DX: E83.42 Hypomagnesemia (principal)

== ENCOUNTER → 2019-08-24 | Outpatient (CLI) | payer OTHER ==
[2019-08-24 11:59] LABS: BUN 24 mg/dl (7-24); CHLORIDE 106 mmol/L (98-107); CREATININE 1.06 mg/dL (0.70-1.30); POTASSIUM 4.2 mmol/L (3.5-5.1); SODIUM 142 mmol/L (136-145)
== END | disposition home or self-care (01) ==
LOC: LAB 10:53
PROVIDERS: Internal Medicine Nephrology
DX: E83.42 Hypomagnesemia (principal)

== ENCOUNTER → 2019-08-27 | Outpatient (CLI) | payer OTHER | END | disposition home or self-care (01) | LOC: RESCLI 00:50 | DX: E78.1 Pure hyperglyceridemia (principal); J45.998 Other asthma; M25.561 Pain in right knee; I10 Essential (primary) hypertension; J44.9 Chronic obstructive pulmonary disease, unspecified; N52.9 Male erectile dysfunction, unspecified; K21.9 Gastro-esophageal reflux disease without esophagitis; M19.90 Unspecified osteoarthritis, unspecified site; F17.200 Nicotine dependence, unspecified, uncomplicated; K59.00 Constipation, unspecified; E83.51 Hypocalcemia; G56.03 Carpal tunnel syndrome, bilateral upper limbs; F17.210 Nicotine dependence, cigarettes, uncomplicated; G40.909 Epilepsy, unspecified, not intractable, without status epilepticus; K58.0 Irritable bowel syndrome with diarrhea; R19.7 Diarrhea, unspecified; Z79.899 Other long term (current) drug therapy ==

== ENCOUNTER → 2019-09-01 | Outpatient (CLI) | payer OTHER ==
[2019-09-01 10:10] LABS: BUN 24 mg/dl (7-24); CHLORIDE 109 mmol/L (98-107); CREATININE 1.16 mg/dL (0.70-1.30); POTASSIUM 4.9 mmol/L (3.5-5.1); SODIUM 141 mmol/L (136-145)
== END | disposition home or self-care (01) ==
LOC: LAB 09:00
PROVIDERS: Internal Medicine
DX: E03.9 Hypothyroidism, unspecified (principal)

== ENCOUNTER → 2019-09-03 | Outpatient (CLI) | payer OTHER ==
[2019-09-03 10:33] LABS: BUN 17 mg/dl (7-24); CHLORIDE 109 mmol/L (98-107); CREATININE 1.09 mg/dL (0.70-1.30); SODIUM 139 mmol/L (136-145)
[2019-09-03 10:36] LABS: POTASSIUM 5.3 mmol/L (3.5-5.1)
== END | disposition home or self-care (01) ==
LOC: LAB 09:23
PROVIDERS: Internal Medicine Nephrology
DX: E83.42 Hypomagnesemia (principal); E87.6 Hypokalemia; E83.39 Other disorders of phosphorus metabolism

== ENCOUNTER → 2019-09-15 | Outpatient (CLI) | payer OTHER ==
[2019-09-15 09:19] LABS: BUN 19 mg/dl (7-24); CHLORIDE 103 mmol/L (98-107); POTASSIUM 3.7 mmol/L (3.5-5.1); SODIUM 139 mmol/L (136-145)
== END | disposition home or self-care (01) ==
LOC: LAB 08:48
PROVIDERS: Internal Medicine Nephrology
DX: E83.42 Hypomagnesemia (principal); E87.6 Hypokalemia; E83.39 Other disorders of phosphorus metabolism

== ENCOUNTER → 2019-09-22 | Outpatient (CLI) | payer OTHER ==
[2019-09-22 10:01] LABS: BUN 25 mg/dl (7-24); CHLORIDE 109 mmol/L (98-107); CREATININE 1.04 mg/dL (0.70-1.30); POTASSIUM 4.3 mmol/L (3.5-5.1); SODIUM 140 mmol/L (136-145)
== END | disposition home or self-care (01) ==
LOC: LAB 09:02
PROVIDERS: Internal Medicine
DX: E83.42 Hypomagnesemia (principal); R73.9 Hyperglycemia, unspecified

== ENCOUNTER → 2019-10-06 | Outpatient (CLI) | payer OTHER ==
[~2019-10-06] MED LIST changes: +PROTONIX40 MG PO
[2019-10-06 09:47] LABS: CHLORIDE 105 mmol/L (98-107); POTASSIUM 3.7 mmol/L (3.5-5.1); SODIUM 142 mmol/L (136-145)
[2019-10-06 09:59] LABS: BUN 19 mg/dl (7-24)
== END | disposition home or self-care (01) ==
LOC: LAB 08:42
PROVIDERS: Internal Medicine Nephrology
DX: E83.42 Hypomagnesemia (principal)

== ENCOUNTER → 2019-11-03 | Outpatient (CLI) | payer OTHER | END | disposition home or self-care (01) | LOC: LAB 15:34 | DX: E83.42 Hypomagnesemia (principal) ==

== ENCOUNTER → 2019-11-04 | Outpatient (CLI) | payer OTHER | END | disposition home or self-care (01) | LOC: RESCLI 01:08 | DX: J44.9 Chronic obstructive pulmonary disease, unspecified (principal); J45.998 Other asthma; M25.561 Pain in right knee; E78.1 Pure hyperglyceridemia; I10 Essential (primary) hypertension; N52.9 Male erectile dysfunction, unspecified; K21.9 Gastro-esophageal reflux disease without esophagitis; M19.90 Unspecified osteoarthritis, unspecified site; K59.00 Constipation, unspecified; E83.51 Hypocalcemia; G56.03 Carpal tunnel syndrome, bilateral upper limbs; G40.909 Epilepsy, unspecified, not intractable, without status epilepticus; K58.0 Irritable bowel syndrome with diarrhea; F17.210 Nicotine dependence, cigarettes, uncomplicated; R19.7 Diarrhea, unspecified; Z79.899 Other long term (current) drug therapy ==

== ENCOUNTER → 2019-11-11 | Day surgery (SDC) | payer OTHER ==
[~2019-11-11] VITALS: Ht 162.5 cm; Wt 74.8 kg
[2019-11-11 08:11] VITALS: BP 156/94
[2019-11-11 08:46] VITALS: BP 114/83
[2019-11-11 09:01] VITALS: BP 126/84
[2019-11-11 09:16] VITALS: BP 111/85
== END | disposition home or self-care (01) ==
LOC: SDC 11-06 12:30
DX: Z12.11 Encounter for screening for malignant neoplasm of colon (principal); I10 Essential (primary) hypertension; J44.9 Chronic obstructive pulmonary disease, unspecified; K44.9 Diaphragmatic hernia without obstruction or gangrene; K29.50 Unspecified chronic gastritis without bleeding; K21.9 Gastro-esophageal reflux disease without esophagitis; K57.30 Diverticulosis of large intestine without perforation or abscess without bleeding; F32.9 Major depressive disorder, single episode, unspecified; F41.9 Anxiety disorder, unspecified; Z98.890 Other specified postprocedural states; Z87.891 Personal history of nicotine dependence; Z72.89 Other problems related to lifestyle; Z86.010 Personal history of colon polyps; Z82.49 Family history of ischemic heart disease and other diseases of the circulatory system

== ENCOUNTER → 2019-12-14 | Outpatient (CLI) | payer OTHER ==
[2019-12-14 11:31] LABS: BASO # 0.1 10*3/uL (0.0-0.1); BASO % 0.5 % (0.0-1.0); EOS # 0.1 10*3/uL (0.0-0.4); EOS % 1.3 % (1.0-4.0); HEMATOCRIT 47.3 % (42.0-52.0); HEMOGLOBIN 15.6 g/dl (14.0-18.0); LYMPH # 3.9 10*3/uL (1.3-4.4); MEAN CELL VOLUME 97.1 fl (80.0-94.0); MONO # 0.7 10*3/uL (0.1-1.0); MONO % 6.9 % (3.0-9.0); NEUT # 5.9 10*3/uL (2.3-7.9); NEUT % 54.8 % (47.0-73.0); PLATELET COUNT AUTOMATED 213 10*3/uL (130-400); RED BLOOD COUNT 4.87 10*6/uL (4.50-5.90); RED CELL DISTRI WIDTH 12.2 % (0-14.5); WHITE BLOOD COUNT 10.8 10*3/uL (4.8-10.8)
[2019-12-14 11:51] LABS: ALBUMIN 3.6 gm/dl (3.1-4.5); ALKALINE PHOSPHATASE 96 U/L (45-117); BUN 23 mg/dl (7-24); CHLORIDE 108 mmol/L (98-107); CREATININE 1.19 mg/dL (0.70-1.30); POTASSIUM 4.7 mmol/L (3.5-5.1); SGOT/AST 12 IU/L (3-35); SGPT/ALT 25 U/L (12-78); SODIUM 142 mmol/L (136-145); TOTAL PROTEIN 7.2 gm/dL (6.4-8.2)
== END | disposition home or self-care (01) ==
LOC: LAB 10:58
PROVIDERS: Internal Medicine Nephrology
DX: E83.42 Hypomagnesemia (principal)

== ENCOUNTER → 2020-01-06 | Outpatient (CLI) | payer OTHER | END | disposition home or self-care (01) | LOC: LAB 14:32 | DX: E83.42 Hypomagnesemia (principal) ==

== ENCOUNTER → 2020-01-21 | Outpatient (CLI) | payer OTHER ==
[2020-01-21 11:25] LABS: BUN 16 mg/dl (7-24); CHLORIDE 105 mmol/L (98-107); CREATININE 0.96 mg/dL (0.70-1.30); POTASSIUM 4.3 mmol/L (3.5-5.1); SODIUM 138 mmol/L (136-145)
== END | disposition home or self-care (01) ==
LOC: LAB 10:41
PROVIDERS: Internal Medicine Nephrology
DX: E83.42 Hypomagnesemia (principal)

== ENCOUNTER → 2020-03-24 | Outpatient (CLI) | payer OTHER | END | disposition home or self-care (01) | LOC: RESCLI 03:55 | DX: K21.9 Gastro-esophageal reflux disease without esophagitis (principal); I10 Essential (primary) hypertension; M25.561 Pain in right knee; E55.9 Vitamin D deficiency, unspecified; J44.9 Chronic obstructive pulmonary disease, unspecified; E53.8 Deficiency of other specified B group vitamins; G40.909 Epilepsy, unspecified, not intractable, without status epilepticus; K58.0 Irritable bowel syndrome with diarrhea; E78.1 Pure hyperglyceridemia; J45.998 Other asthma; M19.90 Unspecified osteoarthritis, unspecified site; F17.200 Nicotine dependence, unspecified, uncomplicated; J45.20 Mild intermittent asthma, uncomplicated; N52.9 Male erectile dysfunction, unspecified; G56.03 Carpal tunnel syndrome, bilateral upper limbs; J30.2 Other seasonal allergic rhinitis; J30.9 Allergic rhinitis, unspecified; K57.90 Diverticulosis of intestine, part unspecified, without perforation or abscess without bleeding; Z79.899 Other long term (current) drug therapy; Z98.890 Other specified postprocedural states ==

== ENCOUNTER → 2020-07-05 | Outpatient (CLI) | payer OTHER ==
[2020-07-05 11:10] LABS: BUN 17 mg/dl (7-24); CHLORIDE 108 mmol/L (98-107); CREATININE 1.02 mg/dL (0.70-1.30); POTASSIUM 4.4 mmol/L (3.5-5.1); SODIUM 143 mmol/L (136-145)
== END | disposition home or self-care (01) ==
LOC: LAB 10:22
PROVIDERS: ATTEND Internal Medicine Nephrology
DX: E83.42 Hypomagnesemia (principal)

== ENCOUNTER → 2020-07-06 | Outpatient (CLI) | payer OTHER | END | disposition home or self-care (01) | LOC: RESCLI 02:14 | PROVIDERS: ATTEND Internal Medicine | DX: I10 Essential (primary) hypertension (principal); M25.561 Pain in right knee; E55.9 Vitamin D deficiency, unspecified; J44.9 Chronic obstructive pulmonary disease, unspecified; E53.8 Deficiency of other specified B group vitamins; G40.909 Epilepsy, unspecified, not intractable, without status epilepticus; K58.0 Irritable bowel syndrome with diarrhea; E78.1 Pure hyperglyceridemia; J45.998 Other asthma; M19.90 Unspecified osteoarthritis, unspecified site; K21.9 Gastro-esophageal reflux disease without esophagitis; F17.200 Nicotine dependence, unspecified, uncomplicated; F17.210 Nicotine dependence, cigarettes, uncomplicated; J45.20 Mild intermittent asthma, uncomplicated; N52.9 Male erectile dysfunction, unspecified; K57.90 Diverticulosis of intestine, part unspecified, without perforation or abscess without bleeding; G56.03 Carpal tunnel syndrome, bilateral upper limbs; J30.9 Allergic rhinitis, unspecified; J30.2 Other seasonal allergic rhinitis; E83.51 Hypocalcemia; Z79.899 Other long term (current) drug therapy; Z98.890 Other specified postprocedural states ==

== ENCOUNTER → 2020-11-24 | Outpatient (CLI) | payer OTHER | END | disposition home or self-care (01) | LOC: RESCLI 02:33 | PROVIDERS: ATTEND Internal Medicine Nephrology | DX: J45.998 Other asthma (principal); E78.1 Pure hyperglyceridemia; I10 Essential (primary) hypertension; J44.9 Chronic obstructive pulmonary disease, unspecified; N52.9 Male erectile dysfunction, unspecified; K21.9 Gastro-esophageal reflux disease without esophagitis; J30.2 Other seasonal allergic rhinitis; M19.90 Unspecified osteoarthritis, unspecified site; F17.200 Nicotine dependence, unspecified, uncomplicated; J45.20 Mild intermittent asthma, uncomplicated; G56.03 Carpal tunnel syndrome, bilateral upper limbs; J30.9 Allergic rhinitis, unspecified; F17.210 Nicotine dependence, cigarettes, uncomplicated; G40.909 Epilepsy, unspecified, not intractable, without status epilepticus; K58.0 Irritable bowel syndrome with diarrhea; E55.9 Vitamin D deficiency, unspecified; E53.8 Deficiency of other specified B group vitamins; K57.90 Diverticulosis of intestine, part unspecified, without perforation or abscess without bleeding; Z79.899 Other long term (current) drug therapy ==

== ENCOUNTER 2021-03-05 22:39 | Emergency (ER) | payer OTHER ==
[~2021-03-05] VITALS: Ht 162.5 cm; Wt 73.5 kg
[2021-03-05 23:06] VITALS: BP 158/98
== END 2021-03-06 02:41 | disposition left against medical advice (07) ==
LOC: ED 22:39
DX: M25.522 Pain in left elbow (principal); F17.200 Nicotine dependence, unspecified, uncomplicated; Z91.018 Allergy to other foods; Z91.048 Other nonmedicinal substance allergy status; Z79.899 Other long term (current) drug therapy; Z87.442 Personal history of urinary calculi; Z98.890 Other specified postprocedural states; X50.9XXA Other and unspecified overexertion or strenuous movements or postures, initial encounter; Y93.89 Activity, other specified; Y92.89 Other specified places as the place of occurrence of the external cause; Y99.8 Other external cause status

== ENCOUNTER → 2021-03-16 | Outpatient (CLI) | payer OTHER | END | disposition home or self-care (01) | LOC: LAB 08:01 | PROVIDERS: ATTEND Internal Medicine | DX: E83.42 Hypomagnesemia (principal) ==

== ENCOUNTER → 2021-03-20 | Outpatient (CLI) | payer OTHER | END | disposition home or self-care (01) | LOC: RESCLI 00:50 | PROVIDERS: ATTEND Internal Medicine Nephrology | DX: I10 Essential (primary) hypertension (principal); J44.9 Chronic obstructive pulmonary disease, unspecified; K21.9 Gastro-esophageal reflux disease without esophagitis; J30.2 Other seasonal allergic rhinitis; E55.9 Vitamin D deficiency, unspecified; E53.8 Deficiency of other specified B group vitamins; N52.9 Male erectile dysfunction, unspecified; M62.838 Other muscle spasm; G40.909 Epilepsy, unspecified, not intractable, without status epilepticus; E78.5 Hyperlipidemia, unspecified; M19.90 Unspecified osteoarthritis, unspecified site; F10.10 Alcohol abuse, uncomplicated; Z72.0 Tobacco use; Z79.899 Other long term (current) drug therapy ==

== ENCOUNTER → 2021-09-15 | Outpatient (CLI) | payer OTHER | END | disposition home or self-care (01) | LOC: RESCLI 06:08 | PROVIDERS: ATTEND Internal Medicine | DX: I10 Essential (primary) hypertension (principal); E53.8 Deficiency of other specified B group vitamins; E55.9 Vitamin D deficiency, unspecified; J44.9 Chronic obstructive pulmonary disease, unspecified; G40.909 Epilepsy, unspecified, not intractable, without status epilepticus; N52.9 Male erectile dysfunction, unspecified; M62.838 Other muscle spasm; K21.9 Gastro-esophageal reflux disease without esophagitis; F41.9 Anxiety disorder, unspecified; F17.200 Nicotine dependence, unspecified, uncomplicated; Z79.899 Other long term (current) drug therapy ==

== ENCOUNTER 2022-04-05 20:19 | Emergency (ER) | payer OTHER ==
[~2022-04-05] VITALS: Ht 172.7 cm; Wt 90.7 kg
[2022-04-05 20:31] VITALS: BP 162/93
[2022-04-05 20:40] LABS: BASO # 0.1 10*3/uL (0.0-0.1); BASO % 0.4 % (0.0-1.0); EOS # 0.1 10*3/uL (0.0-0.4); EOS % 0.9 % (1.0-4.0); HEMATOCRIT 46.6 % (42.0-52.0); LYMPH # 0.6 10*3/uL (1.3-4.4); LYMPH % 5.1 % (27.0-41.0); MEAN CELL VOLUME 97.3 fl (80.0-94.0); MEAN CORPUSCULAR HGB 32.4 pg (27.0-31.0); MEAN CORPUSCULAR HGB CONC 33.3 g/dl (33.0-37.0); MEAN PLATELET VOLUME 9.1 fl (9.6-12.3); MONO # 1.1 10*3/uL (0.1-1.0); MONO % 9.6 % (3.0-9.0); NEUT # 9.4 10*3/uL (2.3-7.9); NEUT % 83.2 % (47.0-73.0); PLATELET COUNT AUTOMATED 197 10*3/uL (130-400); RED BLOOD COUNT 4.79 10*6/uL (4.50-5.90); RED CELL DISTRI WIDTH 12.3 % (0-14.5); WHITE BLOOD COUNT 11.3 10*3/uL (4.8-10.8)
[2022-04-05 20:52] LABS: ACT PARTIAL THROMBO TIME 27.6 SECONDS (20.0-32.1)
[2022-04-05 20:56] LABS: ALKALINE PHOSPHATASE 88 U/L (45-117); BUN 19 mg/dl (7-24); CHLORIDE 106 mmol/L (98-107); CREATININE 1.02 mg/dL (0.70-1.30); POTASSIUM 3.9 mmol/L (3.5-5.1); SGOT/AST 23 IU/L (3-35); SGPT/ALT 29 U/L (12-78); SODIUM 137 mmol/L (136-145); TOTAL PROTEIN 6.9 gm/dL (6.4-8.2)
== END 2022-04-05 22:49 | disposition left against medical advice (07) ==
LOC: ED 20:19
PROVIDERS: Emergency Medicine
DX: U07.1 COVID-19 (principal); R07.9 Chest pain, unspecified; R50.9 Fever, unspecified; R06.02 Shortness of breath; Z91.018 Allergy to other foods; Z79.899 Other long term (current) drug therapy; Z98.890 Other specified postprocedural states; Z87.891 Personal history of nicotine dependence

== ENCOUNTER → 2022-07-05 | Outpatient (CLI) | payer OTHER | END | disposition home or self-care (01) | LOC: RESCLI 14:53 | PROVIDERS: ATTEND Internal Medicine | DX: N52.9 Male erectile dysfunction, unspecified (principal); M62.838 Other muscle spasm; I10 Essential (primary) hypertension; J44.9 Chronic obstructive pulmonary disease, unspecified; M19.90 Unspecified osteoarthritis, unspecified site; G43.909 Migraine, unspecified, not intractable, without status migrainosus; F17.200 Nicotine dependence, unspecified, uncomplicated; K21.9 Gastro-esophageal reflux disease without esophagitis; Z98.890 Other specified postprocedural states; Z72.89 Other problems related to lifestyle; Z79.899 Other long term (current) drug therapy ==

== ENCOUNTER → 2023-01-03 | Outpatient (CLI) | payer OTHER | END | disposition home or self-care (01) | LOC: RESCLI 00:35 | PROVIDERS: ATTEND Internal Medicine | DX: M62.838 Other muscle spasm (principal); N52.9 Male erectile dysfunction, unspecified; K21.9 Gastro-esophageal reflux disease without esophagitis; J44.9 Chronic obstructive pulmonary disease, unspecified; G40.909 Epilepsy, unspecified, not intractable, without status epilepticus; I10 Essential (primary) hypertension; F17.210 Nicotine dependence, cigarettes, uncomplicated; E55.9 Vitamin D deficiency, unspecified; Z88.8 Allergy status to other drugs, medicaments and biological substances; Z98.890 Other specified postprocedural states; Z82.49 Family history of ischemic heart disease and other diseases of the circulatory system; Z79.899 Other long term (current) drug therapy ==

== ENCOUNTER → 2024-10-02 | Outpatient (CLI) | payer OTHER | END | disposition home or self-care (01) | LOC: RAD 10:40 | PROVIDERS: ATTEND Internal Medicine | DX: M25.532 Pain in left wrist (principal) ==

== ENCOUNTER → 2025-03-05 | Outpatient (CLI) | payer OTHER ==
[2025-03-05 11:13] LABS: BASO # 0.1 10*3/uL (0.0-0.1); BASO % 0.8 % (0.0-1.0); EOS # 0.2 10*3/uL (0.0-0.4); EOS % 2.3 % (1.0-4.0); HEMATOCRIT 47.2 % (42.0-52.0); MEAN CORPUSCULAR HGB 32.5 pg (27.0-31.0); MEAN CORPUSCULAR HGB CONC 32.8 g/dl (33.0-37.0); MEAN PLATELET VOLUME 9.3 fl (9.6-12.3); MONO # 0.7 10*3/uL (0.1-1.0); MONO % 7.9 % (3.0-9.0); NEUT # 4.8 10*3/uL (2.3-7.9); NEUT % 56.8 % (47.0-73.0); PLATELET COUNT AUTOMATED 202 10*3/uL (130-400); RED BLOOD COUNT 4.77 10*6/uL (4.50-5.90); RED CELL DISTRI WIDTH 12.8 % (0-14.5); WHITE BLOOD COUNT 8.4 10*3/uL (4.8-10.8)
[2025-03-05 12:07] LABS: VITAMIN D, 25-HYDROXY 44.2 ng/mL (30-100)
[2025-03-05 12:08] LABS: ALKALINE PHOSPHATASE 102 U/L (46-116); BUN 16 mg/dl (9-23); CHLORIDE 105 mmol/L (98-107); CHOLESTEROL 174 mg/dL (<200); LDL CHOLESTEROL 53 mg/dL (9-159); POTASSIUM 4.1 mmol/L (3.4-5.1); SGPT/ALT 23 U/L (5-49); TOTAL PROTEIN 6.5 gm/dL (6.0-8.0); TRIGLYCERIDES 402 mg/dl (<150)
== END | disposition home or self-care (01) ==
LOC: LAB 10:58
PROVIDERS: ATTEND Internal Medicine
DX: I10 Essential (primary) hypertension (principal); E83.42 Hypomagnesemia; Z11.59 Encounter for screening for other viral diseases

== ENCOUNTER → 2025-05-17 | Outpatient (CLI) | payer OTHER ==
[2025-05-17 07:21] LABS: BASO # 0.1 10*3/uL (0.0-0.1); BASO % 1.0 % (0.0-1.0); EOS # 0.3 10*3/uL (0.0-0.4); EOS % 2.7 % (1.0-4.0); MEAN CELL VOLUME 98.5 fl (80.0-94.0); MEAN CORPUSCULAR HGB 32.0 pg (27.0-31.0); MEAN PLATELET VOLUME 9.2 fl (9.6-12.3); MONO # 0.7 10*3/uL (0.1-1.0); MONO % 7.2 % (3.0-9.0); NEUT # 4.8 10*3/uL (2.3-7.9); NEUT % 51.8 % (47.0-73.0); NUCLEATED RED BLOOD CELL 0.0 % (0.0-0.0); NUCLEATED RED BLOOD CELL 0.0 10*3/uL (0.0-0.0); PLATELET COUNT AUTOMATED 213 10*3/uL (130-400); RED CELL DISTRI WIDTH 12.9 % (0-14.5)
[2025-05-17 08:20] LABS: BUN 16 mg/dl (9-23); LDL CHOLESTEROL 71 mg/dL (9-159); SGPT/ALT 29 U/L (5-49)
[2025-05-18 12:07] LABS: ANTI-DSDNA ANTIBODIES <1 IU/mL (0-9); ANTI-RNP ANTIBODIES <0.2 AI (0.0-0.9); ANTICHROMATIN ANTIBODIES <0.2 AI (0.0-0.9); ANTISCLERODERMA-70 AB <0.2 AI (0.0-0.9)
== END | disposition home or self-care (01) ==
LOC: LAB 07:04
PROVIDERS: ATTEND Nurse Practitioner Primary Care
DX: R00.2 Palpitations (principal); I10 Essential (primary) hypertension; E78.1 Pure hyperglyceridemia; E83.42 Hypomagnesemia; M25.40 Effusion, unspecified joint; E11.9 Type 2 diabetes mellitus without complications

== ENCOUNTER 2025-06-16 17:17 | Emergency (ER) | payer OTHER ==
[~2025-06-16] VITALS: Ht 162.5 cm; Wt 77.1 kg
[2025-06-16] MEDS ORDERED: Ondansetron Hydrochloride 4 MG/2 ML VIAL IV ONE (17:50)
[2025-06-16] MEDS ORDERED: ASPIRIN, CHEWABLE 81 MG TAB PO ONE (17:50)
[2025-06-16] MEDS ORDERED: HEPARIN SODIUM 5,000 UNIT/ML VIAL IV ONE (17:50)
[2025-06-16 18:01] LABS: BASO # 0.1 10*3/uL (0.0-0.1); BASO % 0.6 % (0.0-1.0); EOS # 0.1 10*3/uL (0.0-0.4); EOS % 0.5 % (1.0-4.0); MEAN CELL VOLUME 98.6 fl (80.0-94.0); MEAN CORPUSCULAR HGB 32.5 pg (27.0-31.0); MEAN PLATELET VOLUME 8.9 fl (9.6-12.3); MONO # 0.8 10*3/uL (0.1-1.0); MONO % 5.8 % (3.0-9.0); NEUT # 9.8 10*3/uL (2.3-7.9); NEUT % 74.2 % (47.0-73.0); NUCLEATED RED BLOOD CELL 0.0 % (0.0-0.0); NUCLEATED RED BLOOD CELL 0.0 10*3/uL (0.0-0.0); PLATELET COUNT AUTOMATED 229 10*3/uL (130-400); RED CELL DISTRI WIDTH 13.1 % (0-14.5)
[2025-06-16 18:02] VITALS: BP 167/98
[2025-06-16 18:13] LABS: ACT PARTIAL THROMBO TIME 27.5 SECONDS (20.0-32.1)
[2025-06-16] MEDS ORDERED: HEPARIN SODIUM 250 ML IV ONE (18:13)
[2025-06-16 18:25] LABS: BUN 13 mg/dl (9-23); CPK 214 U/L (34-171)
== END 2025-06-16 18:20 | disposition short-term general hospital (02) ==
LOC: ED 17:17
PROVIDERS: Emergency Medicine
DX: I21.3 ST elevation (STEMI) myocardial infarction of unspecified site (principal); F12.90 Cannabis use, unspecified, uncomplicated; Z98.890 Other specified postprocedural states; F17.210 Nicotine dependence, cigarettes, uncomplicated; Z91.018 Allergy to other foods; J44.9 Chronic obstructive pulmonary disease, unspecified; K21.9 Gastro-esophageal reflux disease without esophagitis; I10 Essential (primary) hypertension; F32.A Depression, unspecified; F41.9 Anxiety disorder, unspecified

== ENCOUNTER → 2025-07-20 | Outpatient (CLI) | payer OTHER | END | disposition home or self-care (01) | LOC: RAD 11:30 | PROVIDERS: ATTEND Nurse Practitioner Primary Care | DX: J18.9 Pneumonia, unspecified organism (principal) ==